=== PATIENT | female | born 1940 | race Caucasian/White ===

== ENCOUNTER 2018-09-21 16:32 | Inpatient (IN) | payer BC, MEDICARE ==
[~2018-09-21] VITALS: Ht 165.1 cm; Wt 74.9 kg
--- NOTE | 2018-09-21 16:56 | PHYS DOC ---
Past History Past Medical History: Anxiety, Dementia, Depression Adult General Chief Complaint Chief Complaint: PSYCH EVALUATION HPI HPI Patient is a 77 year old female who presents with psychosis. Patient started having mental health issues approximately 24 to 48 hours ago. Patient was evaluated at an outlying facility who believed that she had labs performed recently and felt that she was medically clear for our geriatric psychiatric unit however patient had no laboratory testing and no imaging performed. Patient is in the emergency department for these. Patient denies any suicidal or homicidal ideation. History from patient's and son dictates that she has a previous history of mental health issues has not been having any up until the time frame noted above with increased confusion, flight of ideas, and decreased sleeping.[] Review of Systems Review of Systems Constitutional: Denies fever or chills [] Eyes: Denies change in visual acuity, redness, or eye pain [] HENT: Denies nasal congestion or sore throat [] Respiratory: Denies cough or shortness of breath [] Cardiovascular: No chest pain or palpitations[] GI: Denies abdominal pain, nausea, vomiting, bloody stools or diarrhea [] : Denies dysuria or hematuria [] Musculoskeletal: Denies back pain or joint pain [] Integument: Denies rash or skin lesions [] Neurologic: Denies headache, focal weakness or sensory changes [] Endocrine: Denies polyuria or polydipsia [] All other systems were reviewed and found to be within normal limits, except as documented in this note. Physical Exam Physical Exam Constitutional: Well developed, well nourished, no acute distress, non-toxic appearance. [] HENT: Normocephalic, atraumatic, bilateral external ears normal, oropharynx moist, no oral exudates, nose normal. [] Eyes: PERRLA, EOMI, conjunctiva normal, no discharge. [] Neck: Normal range of motion, no tenderness, supple, no stridor. [] Cardiovascular:Heart rate regular rhythm, no murmur [] Lungs & Thorax: Bilateral breath sounds clear to auscultation [] Abdomen: Bowel sounds normal, soft, no tenderness, no masses, no pulsatile masses. [] Skin: Warm, dry, no erythema, no rash. [] Back: No tenderness, no CVA tenderness. [] Extremities: No tenderness, no cyanosis, no clubbing, ROM intact, no edema. [] Neurologic: Alert and oriented X 3, normal motor function, normal sensory function, no focal deficits noted. [] Psychologic: Affect normal, mood labile, from smiling to tearful in moments, tangential thinking. [] EKG EKG My interpretation of EKG shows a sinus rhythm at 74 bpm. No acute morphology. No findings of acute STEMI of contralateral changes.[] Radiology/Procedures Radiology/Procedures CT scan of the head showed no acute changes[] Course & Med Decision Making Course & Med Decision Making Pertinent Labs and Imaging studies reviewed. (See chart for details) ED course: Patient arrived, was placed in bed, in tolerate exam well. Patient was transported to and from [place] with any complications. At 1800 laboratory testing is still pending and patient care was endorsed to Dr. Curtis with an initial plan of admission to [facility] if these are all normal.[] Impression 1. Mental Status Change 2. Insomnia 3. Depression 4. Dementia 5. UTI 6. Anxiety Pt. Admitted [facility] - Dr. Montgomery. Consult to Dr. Bermudez - for medical issues. Dragon Disclaimer Dragon Disclaimer This electronic medical record was generated, in whole or in part, using a voice recognition dictation system. Departure Departure: Referrals: REYNA LOPEZ (PCP) OMAR DYE DO Sep 21, 2018 16:56 FLAVIO CURTIS MD Sep 21, 2018 20:54
[2018-09-21] MEDS ORDERED: LATA2.5D3 EACHEYE (17:24)
[2018-09-21] MEDS ORDERED: HYDR-3165 PO (17:24)
[2018-09-21] MEDS ORDERED: LORA1TAB PO (17:24)
--- NOTE | 2018-09-21 17:28 | RAD ---
PQRS Compliance statement: One or more of the following individualized dose reduction techniques were utilized for this examination: 1. Automated exposure control. 2. Adjustment of the mA and/or kV according to patient size. 3. Use of iterative reconstruction technique. Indication:ACUTE PSYCHOSIS TECHNIQUE: CT head without IV contrast COMPARISON:None FINDINGS: No pathologic extra-axial or intra-axial fluid collection. Mild diffuse cerebral atrophy with ex vacuo dilation of the ventricles. No acute intracranial bleed. Confluent periventricular and deep white matter low-attenuation is seen. No focal loss of masterson-white differentiation. Visualized orbits within normal limits. No suspicious bony lesion. Visualized paranasal sinuses and mastoid air cells are clear. IMPRESSION: 1. No acute intracranial bleed. If concern for acute ischemic stroke is high, please consider MRI brain. 2. Advanced white matter changes most likely secondary to chronic microvascular ischemic disease. Electronically signed by: Salo Jaime DO (09/21/2018 5:25 PM) [employer]
--- NOTE | 2018-09-21 17:44 | EKG ---
[address] [address] Test Date: 2018-09-21 Test Time: 17:21:10 Pat Name: NUNU AGOSTO Department: Room: Gender: F Cryptanalyst: : 1940 Requested By: OMAR DYE Order Number: [id number] Reading MD: Ramez Houston MD Measurements Intervals [place] Rate: 74 P: 41 [place]: 126 QRS: 62 QRSD: 78 T: 34 QT: 396 QTc: 445 Interpretive Statements SINUS RHYTHM Electronically Signed On 09-24-2018 8:40:59 PERMIT AGENT by Ramez Houston MD
[2018-09-21 17:58] LABS: BASO # 0.1 x10^3/uL (0.0-0.2); BASO % 1 % (0-3); EOS # 0.1 x10^3/uL (0.0-0.7); EOS % 2 % (0-3); HEMATOCRIT 46.8 % (36.0-47.0); HEMOGLOBIN 15.1 g/dL (12.0-15.5); LYMPH # 1.2 x10^3/uL (1.0-4.8); LYMPH % 21 % (24-48); MEAN CORPUSCULAR HEMOGLOBIN 32 pg (25-35); MEAN CORPUSCULAR HGB CONC 32 g/dL (31-37); MEAN CORPUSCULAR VOLUME 98 fL (79-100); MONO # 0.7 x10^3/uL (0.0-1.1); MONO % 12 % (0-9); NEUT # 3.8 x10^3uL (1.8-7.7); NEUT % 64 % (31-73); PLATELET COUNT 229 x10^3/uL (140-400); RED BLOOD COUNT 4.77 x10^6/uL (3.50-5.40); RED CELL DISTRIBUTION WIDTH 13.4 % (11.5-14.5); WHITE BLOOD COUNT 5.8 x10^3/uL (4.0-11.0)
[2018-09-21 18:11] LABS: ALBUMIN 3.8 g/dL (3.4-5.0); CALCIUM 9.1 mg/dL (8.5-10.1); CREATININE 0.8 mg/dL (0.6-1.0); DIRECT BILIRUBIN 0.2 mg/dL (0.0-0.2); GFR 69.9; MAGNESIUM 2.3 mg/dL (1.8-2.4); POTASSIUM 3.6 mmol/L (3.5-5.1); TOTAL BILIRUBIN 0.7 mg/dL (0.2-1.0); TOTAL PROTEIN 7.2 g/dL (6.4-8.2)
[2018-09-21 18:20] LABS: ETHANOL < 10 mg/dL (0-10); SALIC 0.8 mg/dL (2.8-20.0)
[2018-09-21 18:21] LABS: ACETAMIN < 2.0 mcg/mL (10-30)
[2018-09-21 22:10] VITALS: BP 138/77
[2018-09-21 22:31] LABS: BARBITURATES NEG (NEG); BENZODIAZEPINES NEG (NEG); BILIRUBIN,URINE NEG (NEG); CANNABINOIDS NEG (NEG); CLARITY,URINE HAZY; COCAINE NEG (NEG); COLOR,URINE YELLOW; GLUCOSE,URINE NEG (NEG); METHADONE NEG (NEG); OPIATES POS (NEG); PHENCYCLIDINE NEG (NEG)
[2018-09-21 22:32] LABS: BACTERIA,URINE MOD /HPF (0-FEW); NITRITE,URINE NEG (NEG); SQUAMOUS EPITHELIAL CELL,UR FEW /LPF; UROBILINOGEN,URINE 0.2 mg/dL (0.2 mg/dL)
[2018-09-21 22:37] LABS: AMPHETAMINE/METHAMPHETAMINE NEG (NEG)
[2018-09-21] MEDS ORDERED: MAG HYDROX/AL HYDROX/SIMETH 30 ML ORAL.SUSP PO PRN (23:00)
[2018-09-21] MEDS ORDERED: MAGNESIUM HYDROXIDE 2,400 MG/30 ML ORAL.SUSP. PO PRN (23:00)
[2018-09-21] MEDS: LORazepam 1 MG TABLET PO PRN (23:03)
[2018-09-21] MEDS ORDERED: HYDROcodone/APAP 5/325MG 1 TAB TABLET PO PRN (23:15)
[2018-09-22 05:59] VITALS: BP 163/78
[2018-09-22] MEDS: CEPHALEXIN 250 MG CAPSULE PO SCH ×3 (09:16→19:22)
[2018-09-22 15:08] LABS: THYROXINE 7.3 ug/dL (4.5-12.0)
[2018-09-22 16:16] VITALS: BP 143/84
--- NOTE | 2018-09-22 16:18 | CONS ---
DATE OF CONSULTATION: 09/21/2018 REASON FOR CONSULTATION: Medical management. HISTORY OF PRESENT ILLNESS: The patient is a 77-year-old female patient who lives at home with her , signed herself in on account of living in the past, talking about her father's as if it occurred yesterday, confused, sudden onset, decreased appetite, insomnia, increased agitation; stated that she has God talking to her through the TV and radio, all this in a background of psychosis, not otherwise specified and she is here for inpatient psychiatric stabilization. PAST MEDICAL HISTORY: Significant for anxiety, chronic back pain. She has also urinary tract infection, opioid use. PAST SURGICAL HISTORY: Significant for broken leg, appendectomy, cholecystectomy, biopsy of the breast, cervical laminectomy. FAMILY HISTORY: Positive for breast cancer in her mother and cancer in mother and father, heart disease in her mother and father. Her mother has also tuberculosis. SOCIAL HISTORY: She is and lives with her . She drinks alcohol, but quit smoking. ALLERGIES: She is ALLERGIC TO NONSTEROIDAL ANTI-INFLAMMATORY MEDICATION. CURRENT MEDICATIONS: She is currently on following medications: She is on hydrocodone/APAP 5/325 one tablet 3 times a day as needed, lorazepam 1 mg twice a day as needed, and latanoprost 1 drop to both eyes at bedtime for glaucoma. REVIEW OF SYSTEMS: As per history of present illness. PHYSICAL EXAMINATION GENERAL: When I examined her, she looked pale, but no jaundice or cyanosis. No lymphadenopathy, no thyromegaly. No jugular venous distension. No lower limb edema. VITAL SIGNS: Her heart rate was 82, blood pressure was 163/78, temperature was 98.1, respiratory rate 22 and oxygen saturation was 96%. HEAD, EYES, EARS, NOSE, AND THROAT: Showed normocephalic, atraumatic. NECK: Supple. CARDIAC: Normal first and second heart sounds. No gallop, rub or murmur. CHEST: Clear to auscultation. No crepitation or rhonchi. ABDOMEN: Scaphoid, soft, nontender. NEUROLOGIC: She is grossly intact. All her cranial nerves intact. EXTREMITIES: She moves extremities without difficulty. She ambulates without assistance or assistive devices. LABORATORY DATA: Showed a white cell count 5800, hemoglobin 15, hematocrit 46, MCV 98 and a platelet count 229,000. Her chemistry showed a serum sodium 134, potassium 3.6, chloride 100, bicarbonate 22, anion gap of 12, BUN 22, creatinine 0.8, estimated GFR was 70 mL per minute. Her glucose was 94, calcium was 9.1, magnesium was 2.3. Total bilirubin, AST, ALT, alkaline phosphatase were normal. Total protein was 7.2, albumin 3.8, lipase was 204. Her lactic acid was normal. Serum iron was 59, TIBC was 287 and iron saturation was 21%. Her ammonia was only 10. Her serum triglycerides were 77, total cholesterol 163, LDL cholesterol was 93, VLDL was 15, and HDL cholesterol was 55, the ratio was 2. Her TSH was 1.44. Her prothrombin time was 9.7, INR of 1. Urinalysis showed the urine yellow, hazy with a pH of 5.5, specific gravity of 1.030. The urine was negative for protein, glucose, ketones, blood, nitrite with moderate amount of leukocyte esterase, 1-2 rbc's, 11-20 wbc's, and moderate amount of bacteria. Her toxic screen was positive for opiates and was negative for barbiturates, phencyclidine, amphetamine, benzodiazepine, cocaine, cannabinoids and alcohol. She did have a CT scan of the head, which showed no pathological extraaxial or intraaxial fluid collection. Mild diffuse cerebral atrophy with ex vacuo dilatation of the ventricles. No acute intracranial bleed, confluent periventricular and deep white matter low attenuation is seen. No focal loss of masterson-white differentiation is visualized. The visualized orbits are within normal limits. No suspicious bony lesion. Visualized paranasal sinuses and mastoid air cells are all clear. IMPRESSION: In summary, this is a 77-year-old who was admitted on account of living in the past, talking about her father's as if it occurred yesterday, confused, all this with sudden onset with decreased appetite, insomnia, increased agitation. She thinks that God talks to her through the TV and radio, and was admitted with not otherwise specified psychosis. She is here for inpatient psychiatric stabilization. Her past medical history is mostly unremarkable. She has glaucoma and chronic low back pain. Medically, she seems to be all in all stable. I will obviously follow all the other lab works that are still pending at the time of this dictation and make any necessary recommendation. Thank you, Dr. Montgomery for allowing me to participate in the care of this patient. ANGELICA HOLLAND MD DR: MICHAEL/anahi JOB#: [id number] / [id number]
--- NOTE | 2018-09-22 19:06 | PSYEV ---
DATE OF SERVICE: 09/21/2018 HISTORY OF PRESENT ILLNESS: This 77-year-old female was admitted to inpatient program at [facility] from [facility] Room where she was evaluated. The patient's called earlier to talk to the staff requesting for admission. At that time, she also stated the patient was taking lorazepam and also Bigelow. There was some confusion whether she has been taking them regularly or if she is abusing down and the recommendation was for her to go to [facility] to be medically cleared. The patient was also seen here in the Emergency Room. The patient apparently is having a nervous breakdown according to her . Apparently, she had similar problems in 1985 and the patient is not sure whether she was hospitalized, but she said she was on thiothixene, the other name for drug is Navane, and also Pamelor and continue seeing the doctor regularly for about 2 years and symptoms all cleared up, then she stopped taking her medications. The patient currently is presenting with racing thoughts, ruminations, circumstantial thinking, increased psychomotor activity, emotional lability and also claims she is not able to hear ____. The patient also states she has been on board with all the noises including TV, people talking, seems to be hallucinating auditorily. The patient admits that she was taking Bigelow for several years, sometimes up to 6 a day lately, cutting down to once a day in the process of taking her off completely. Also, she has been on lorazepam up to 3 mg daily. Lately, she is taking only 1 mg daily. The patient denies of abusing any narcotics or lorazepam. The patient states she was told that she had the diagnosis of schizophrenia then, but she was able to function fairly well. She is retired. Since she retired, she also has been drinking 2-3 shots of hard liquor before that she was drinking beer. The patient is also not a good historian at this time because of her disorganized thinking, paranoia, sensitivity to noises. The patient does admit when she had a breakdown in 1985, she was having all these problems including hearing voices. She thought God was talking to her. The patient also thought people are controlling her mind. The patient is also not sleeping well. Appetite decreased. PAST PSYCHIATRIC HISTORY: As per the patient, she was treated in 1985. Not clear why she is hospitalized or not, but she was in treatment for over 2 years and according to her, she was given the diagnosis of schizophrenia and treated with Biotoxin and Pamelor. Currently, she is not taking them. PAST MEDICAL HISTORY: History of chronic back pain that is the reason she is taking the narcotic, also had a recent UTI and opioid abuse. PAST SURGICAL HISTORY: Significant for broken leg, appendectomy, cholecystectomy, biopsy of the breast, also surgical laminectomy. ALLERGIES: THE PATIENT IS ALLERGIC TO NONSTEROIDAL ANTI-INFLAMMATORY DRUGS. PSYCHOSOCIAL HISTORY: The patient is somnolent. The patient is having lot of difficulty providing a chronological history of the past events except stating she had problems dealing with her father's and also at times people talking and feeling expressing her emotions as though these event has happened recently. The patient also had problems with concept of time. The patient states she graduated from college in [employer] science. 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 The patient is for 50 years. She has a son. The patient currently retired. The patient denied of any abuse in the past physical, emotional or sexual abuse. MENTAL STATUS EXAMINATION: The patient appeared to be of her stated age, casually dressed, highly emotional and also labile. The patient is also complaining that she has hearing problems. The patient constantly is focusing in the past. He has a lot of problems with the thinking at this time. Her speech is clear. Increased rate and rhythm. No speech impediment. Affect and mood showed she is disorganized with her thinking. She is ruminating, also circumstantial thinking, going in details about everything. The patient also admits she is not sleeping well, not eating well. She is constantly bombarded with all the information, all the noises, TV and also she appears to be having auditory hallucinations, also command hallucinations of God is telling her to do things. The patient denied of any suicidal or homicidal thoughts. The patient denied of any suicidal attempts in the past. She is oriented to surroundings. Her memory is not testable at this time because of her psychosis. Her judgment is impaired. Insight is limited. The patient appears to be functioning on an average level of intelligence. Strength: Supportive . She is fairly good. She has a college degree, able to hold a responsible job in the past, currently retired. WEAKNESSES: The patient is currently in a psychotic state. The patient also is abusing alcohol, narcotics and also benzodiazepine. She has been taking for many years. DIAGNOSTIC IMPRESSION: AXIS I: 1. Bipolar disorder, manic episode. 2. Consider Schizoaffective disorder, bipolar type. AXIS II: None. AXIS III: Chronic back pain, spinal laminectomy. INITIAL TREATMENT PLAN: The patient had a surgical exam, also routine lab work including CBC, chem profile, and urinalysis. The patient's lab work was within normal range. The patient's thyroid profile was within the normal range. Ammonia level less than 10. BUN 22. CURRENT MEDICATIONS: the patient's current medications include prior to admission, Keflex 500 mg t.i.d., hydrocodone, currently on 1 t.i.d. p.r.n. for pain, lorazepam 1 mg b.i.d. p.r.n. for pain. The patient ____ 500 mg at night and also Abilify 10 mg daily. LENGTH OF STAY: 8-10 days. JAYJAY LOPEZ MD DR: NERY/anahi JOB#: [id number] / [id number]
[2018-09-22] MEDS: LATANOPROST 0.005% OPHTH SOLUTION 2.5ML BOTTLE. OU SCH (19:22)
[2018-09-22] MEDS: LORazepam 1 MG TABLET PO PRN (19:27)
[2018-09-22] MEDS ORDERED: NAPR220T70 PO (20:21)
[2018-09-22 23:07] LABS: HEMOGLOBIN A1C 5.4 % (4.8-5.6)
[2018-09-23 05:51] VITALS: BP 170/87
[2018-09-23] MEDS: CEPHALEXIN 250 MG CAPSULE PO SCH ×3 (08:07→19:49)
--- NOTE | 2018-09-23 14:20 | PN ---
DATE: 09/23/2018 SUBJECTIVE: The patient was seen today, met with the staff, chart reviewed. The patient's behavior has improved slightly. She is more pleasant, but still confused, flight of ideas, racing thoughts. The patient also on wheelchair. No falls. OBSERVATION: VITAL SIGNS: Temperature 98.1, blood pressure 170/87, pulse 86, respirations 20, O2 sat 98%. Slept about 5 hours last night. MEDICATIONS: Reviewed. The patient continues to show fluctuating symptoms, no major side effects. LABORATORY DATA: Reviewed. ASSESSMENT: 1. Bipolar disorder, manic episode. 2. Consider schizoaffective disorder, bipolar type. 3. Cognitive disorder, mild. PLAN: Continue with the current treatment. Continue to observe the patient review and patient is also exhibiting some cognitive deficits at this time. JAYJAY LOPEZ MD DR: NERY/anahi JOB#: [id number] / [id number]
[2018-09-23 16:30] VITALS: BP 152/87
[2018-09-23] MEDS: LATANOPROST 0.005% OPHTH SOLUTION 2.5ML BOTTLE. OU SCH (19:49)
[2018-09-23] MEDS: LACTOBACILLUS RHAMNOSUS GG 1 CAPSULE. PO SCH (19:49)
[2018-09-24] MEDS: LORazepam 1 MG TABLET PO PRN (01:06)
[2018-09-24] MEDS: NAPROXEN 250 MG TABLET PO PRN (05:26)
[2018-09-24 05:59] VITALS: BP 148/93
[2018-09-24] MEDS: LACTOBACILLUS RHAMNOSUS GG 1 CAPSULE. PO SCH ×2 (07:53→20:50)
[2018-09-24] MEDS: CEPHALEXIN 250 MG CAPSULE PO SCH ×3 (07:53→20:50)
[2018-09-24 16:09] VITALS: BP 141/93
--- NOTE | 2018-09-24 19:05 | PDOC ---
Exam Note: Severo Note: Please also refer to the separate dictated note~for this date of service dictated separately.~Patient seen individually. Discussed the patient with Nursing staff reviewed the chart.~Reviewed interim history and current functioning. Reviewed vital signs,~Labs/ Radiology~and current medications noted below. Continue current treatment with the changes noted in the dictated addendum note Assessment: Vital Signs: Vital Signs Date Time Temp Pulse Resp B/P (MAP) Pulse Ox O2 Delivery O2 Flow Rate FiO2 09/24/18 16:09 97.7 88 20 141/93 (109) 100 09/23/18 05:51 Room Air I&O Intake and Output 09/24/18 07:00 Intake Total 1040 ml Balance 1040 ml Intake Oral 1040 ml Current Medications: Meds: Current Medications Acetaminophen (Tylenol) 650 mg PRN Q6HRS PRN PO PAIN / TEMP; Start 09/21/18 at 23:00 Al Hydroxide/Mg Hydroxide (Mylanta Plus Xs) 15 ml PRN AFTMEALHC PRN PO DYSPEPSIA; Start 09/21/18 at 23:00 Magnesium Hydroxide (Milk Of Magnesia) 2,400 mg PRN QHS PRN PO CONSTIPATION; Start 09/21/18 at 23:00 Lorazepam (Ativan) 1 mg PRN BID PRN PO ANXIETY / AGITATION Last administered on 09/24/18at 01:06; Start 09/21/18 at 23:00 Acetaminophen/ Hydrocodone Bitart (Lortab 5/325) 1 tab PRN TID PRN PO PAIN; Start 09/21/18 at 23:15; Stop 09/22/18 at 20:23; Status DC Latanoprost (Xalatan) 1 drop QHS OU Last administered on 09/23/18at 19:49; Start 09/22/18 at 21:00 Cephalexin HCl (Keflex) 500 mg TID PO Last administered on 09/24/18at 13:56; Start 09/22/18 at 09:00 Naproxen (Naprosyn) 250 mg PRN Q12HR PRN PO INFLAMMATION PAIN Last administered on 09/24/18at 05:26; Start 09/22/18 at 20:30 Lactobacillus Rhamnosus (Culturelle) 1 cap BID PO Last administered on at 07:53; Start 09/23/18 at 21:00 Sertraline HCl (Zoloft) 50 mg DAILY PO ; Start 09/25/18 at 09:00; Status UNV Mirtazapine (Remeron) 7.5 mg QHS PO ; Start 09/24/18 at 21:00; Status UNV Active Scripts Active Reported Aleve (Naproxen Sodium) 220 Mg Tablet 220 Mg PO PRN Q12HR PRN Lorazepam 1 Mg Tablet 1 Mg PO PRN BID PRN Latanoprost 2.5 Ml Drops 1 Drop EACHEYE QHS I have reviewed the current psychotropics carefully including drug interactions. Risk benefit ratio favors no change other than as noted in my dictated progress note. DELANEY GARCIA MD Sep 24, 2018 19:05
[2018-09-24] MEDS: MIRTAZAPINE 7.5 MG TABLET. PO SCH (20:51)
[2018-09-24] MEDS: LATANOPROST 0.005% OPHTH SOLUTION 2.5ML BOTTLE. OU SCH (20:52)
[2018-09-25 05:54] VITALS: BP 135/88
[2018-09-25] MEDS: LACTOBACILLUS RHAMNOSUS GG 1 CAPSULE. PO SCH ×2 (08:32→20:13)
[2018-09-25] MEDS: CEPHALEXIN 250 MG CAPSULE PO SCH ×3 (08:32→20:13)
[2018-09-25] MEDS: SERTRALINE 50 MG TABLET. PO SCH (10:52)
[2018-09-25 15:47] VITALS: BP 151/74
[2018-09-25] MEDS ORDERED: traZODone 50 MG TABLET. PO PRN (18:15)
--- NOTE | 2018-09-25 19:04 | PDOC ---
Exam Note: Severo Note: Please also refer to the separate dictated note~for this date of service dictated separately.~Patient seen individually. Discussed the patient with Nursing staff reviewed the chart.~Reviewed interim history and current functioning. Reviewed vital signs,~Labs/ Radiology~and current medications noted below. Continue current treatment with the changes noted in the dictated addendum note Assessment: Vital Signs: Vital Signs Date Time Temp Pulse Resp B/P (MAP) Pulse Ox O2 Delivery O2 Flow Rate FiO2 09/25/18 15:47 98.3 92 19 151/74 (99) 97 Room Air I&O Intake and Output 09/25/18 07:00 Intake Total 600 ml Balance 600 ml Intake Oral 600 ml Current Medications: Meds: Current Medications Acetaminophen (Tylenol) 650 mg PRN Q6HRS PRN PO PAIN / TEMP; Start 09/21/18 at 23:00 Al Hydroxide/Mg Hydroxide (Mylanta Plus Xs) 15 ml PRN AFTMEALHC PRN PO DYSPEPSIA; Start 09/21/18 at 23:00 Magnesium Hydroxide (Milk Of Magnesia) 2,400 mg PRN QHS PRN PO CONSTIPATION; Start 09/21/18 at 23:00 Lorazepam (Ativan) 1 mg PRN BID PRN PO ANXIETY / AGITATION Last administered on 09/24/18at 01:06; Start 09/21/18 at 23:00 Acetaminophen/ Hydrocodone Bitart (Lortab 5/325) 1 tab PRN TID PRN PO PAIN; Start 09/21/18 at 23:15; Stop 09/22/18 at 20:23; Status DC Latanoprost (Xalatan) 1 drop QHS OU Last administered on 09/24/18at 20:52; Start 09/22/18 at 21:00 Cephalexin HCl (Keflex) 500 mg TID PO Last administered on 09/25/18at 14:00; Start 09/22/18 at 09:00 Naproxen (Naprosyn) 250 mg PRN Q12HR PRN PO INFLAMMATION PAIN Last administered on 09/24/18at 05:26; Start 09/22/18 at 20:30 Lactobacillus Rhamnosus (Culturelle) 1 cap BID PO Last administered on at 08:32; Start 09/23/18 at 21:00 Sertraline HCl (Zoloft) 50 mg DAILY PO Last administered on 09/25/18at 10:52; Start 09/25/18 at 09:00 Mirtazapine (Remeron) 7.5 mg QHS PO Last administered on 09/24/18at 20:51; Start 09/24/18 at 21:00 Trazodone HCl (Desyrel) 50 mg QHS PO ; Start 09/25/18 at 21:00 Trazodone HCl (Desyrel) 50 mg PRN QHS PRN PO INSOMNIA, MAY REPEAT X1; Start at 18:15 Active Scripts Active Reported Aleve (Naproxen Sodium) 220 Mg Tablet 220 Mg PO PRN Q12HR PRN Lorazepam 1 Mg Tablet 1 Mg PO PRN BID PRN Latanoprost 2.5 Ml Drops 1 Drop EACHEYE QHS I have reviewed the current psychotropics carefully including drug interactions. Risk benefit ratio favors no change other than as noted in my dictated progress note. Diagnosis: Problems: (1) Anxiety disorder (2) Dementia, vascular, with depression (3) Dementia, vascular, with delusions (4) Impulse control disorder (5) Urinary tract infection DELANEY GARCIA MD Sep 25, 2018 19:04
[2018-09-25] MEDS: MIRTAZAPINE 7.5 MG TABLET. PO SCH (20:13)
[2018-09-25] MEDS: LATANOPROST 0.005% OPHTH SOLUTION 2.5ML BOTTLE. OU SCH (20:15)
[2018-09-25] MEDS: traZODone 50 MG TABLET. PO SCH (20:23)
[2018-09-26 06:00] VITALS: BP 159/93
[2018-09-26] MEDS: SERTRALINE 50 MG TABLET. PO SCH (08:59)
[2018-09-26] MEDS: LACTOBACILLUS RHAMNOSUS GG 1 CAPSULE. PO SCH ×2 (08:59→19:56)
[2018-09-26] MEDS: CEPHALEXIN 250 MG CAPSULE PO SCH ×3 (09:00→19:56)
--- NOTE | 2018-09-26 09:17 | PN ---
DATE: 09/24/2018 PSYCHIATRIC PROGRESS NOTE This is a late entry 09/24/2018 covers elements not covered in my initial note. SUBJECTIVE: I met with the patient in the evening. The patient slept 3-1/2 hours previous night. She has been tearful, depressed, intermittently agitated. Discussed the patient with Dr. Sam, who covered for me over the past 1 week and reviewed her past psychiatric records extensively. The patient remains depressed, anxious, somewhat forgetful. REVIEW OF SYSTEMS: Ambulation impaired with walker. No CV, , pulmonary, eye, ENT system symptoms on review. MENTAL STATUS EXAM: Oriented to herself and situation. Speech has some latency, coherent. Abstraction fair, computation impaired, language function intact, attention span short. Mood and affect somewhat withdrawn. LABORATORY DATA: Reviewed. IMPRESSION: Major neurocognitive disorder, early Alzheimer, vascular with delusion, depression. Major depressive disorder; anxiety disorder, unspecified; psychotic disorder, unspecified. PLAN: We will start Remeron 7.5 mg p.o. at bedtime to help with her insomnia, Zoloft 50 mg a day. She remains on Ativan 1 mg b.i.d. p.r.n. Treat the UTI and may need to add trazodone as well. DELANEY GARCIA MD DR: GUSTAVO/anahi JOB#: [id number] / [id number]
[2018-09-26] MEDS: LORazepam 1 MG TABLET PO PRN (11:42)
[2018-09-26 16:39] VITALS: BP 131/71
[2018-09-26] MEDS: QUEtiapine 50 MG TABLET. PO SCH (16:49)
[2018-09-26] MEDS: MIRTAZAPINE 7.5 MG TABLET. PO SCH (19:56)
[2018-09-26] MEDS: traZODone 50 MG TABLET. PO SCH (19:56)
[2018-09-26] MEDS: LATANOPROST 0.005% OPHTH SOLUTION 2.5ML BOTTLE. OU SCH (19:56)
--- NOTE | 2018-09-26 22:58 | PDOC ---
Exam Note: Severo Note: Please also refer to the separate dictated note~for this date of service dictated separately.~Patient seen individually. Discussed the patient with Nursing staff reviewed the chart.~Reviewed interim history and current functioning. Reviewed vital signs,~Labs/ Radiology~and current medications noted below. Continue current treatment with the changes noted in the dictated addendum note Assessment: Vital Signs: Vital Signs Date Time Temp Pulse Resp B/P (MAP) Pulse Ox O2 Delivery O2 Flow Rate FiO2 09/26/18 16:39 98.0 95 20 131/71 (91) 97 09/25/18 15:47 Room Air I&O Intake and Output 09/26/18 07:00 Intake Total 1080 ml Balance 1080 ml Intake Oral 1080 ml Current Medications: Meds: Current Medications Acetaminophen (Tylenol) 650 mg PRN Q6HRS PRN PO PAIN / TEMP; Start 09/21/18 at 23:00 Al Hydroxide/Mg Hydroxide (Mylanta Plus Xs) 15 ml PRN AFTMEALHC PRN PO DYSPEPSIA; Start 09/21/18 at 23:00 Magnesium Hydroxide (Milk Of Magnesia) 2,400 mg PRN QHS PRN PO CONSTIPATION; Start 09/21/18 at 23:00 Lorazepam (Ativan) 1 mg PRN BID PRN PO ANXIETY / AGITATION Last administered on 09/26/18at 11:42; Start 09/21/18 at 23:00 Acetaminophen/ Hydrocodone Bitart (Lortab 5/325) 1 tab PRN TID PRN PO PAIN; Start 09/21/18 at 23:15; Stop 09/22/18 at 20:23; Status DC Latanoprost (Xalatan) 1 drop QHS OU Last administered on 09/26/18at 19:56; Start 09/22/18 at 21:00 Cephalexin HCl (Keflex) 500 mg TID PO Last administered on 09/26/18at 19:56; Start 09/22/18 at 09:00 Naproxen (Naprosyn) 250 mg PRN Q12HR PRN PO INFLAMMATION PAIN Last administered on 09/24/18at 05:26; Start 09/22/18 at 20:30 Lactobacillus Rhamnosus (Culturelle) 1 cap BID PO Last administered on at 19:56; Start 09/23/18 at 21:00 Sertraline HCl (Zoloft) 50 mg DAILY PO Last administered on 09/26/18at 08:59; Start 09/25/18 at 09:00 Mirtazapine (Remeron) 7.5 mg QHS PO Last administered on 09/26/18at 19:56; Start 09/24/18 at 21:00 Trazodone HCl (Desyrel) 50 mg QHS PO Last administered on 09/26/18at 19:56; Start 09/25/18 at 21:00 Trazodone HCl (Desyrel) 50 mg PRN QHS PRN PO INSOMNIA, MAY REPEAT X1; Start at 18:15 Quetiapine Fumarate (SEROquel) 50 mg DAILY@1700 PO Last administered on at 16:49; Start 09/26/18 at 17:00 Active Scripts Active Reported Aleve (Naproxen Sodium) 220 Mg Tablet 220 Mg PO PRN Q12HR PRN Lorazepam 1 Mg Tablet 1 Mg PO PRN BID PRN Latanoprost 2.5 Ml Drops 1 Drop EACHEYE QHS I have reviewed the current psychotropics carefully including drug interactions. Risk benefit ratio favors no change other than as noted in my dictated progress note. Diagnosis: Problems: (1) Anxiety disorder (2) Dementia, vascular, with depression (3) Dementia, vascular, with delusions (4) Impulse control disorder (5) Urinary tract infection DELANEY GARCIA MD Sep 26, 2018 22:58
--- NOTE | 2018-09-27 00:23 | PN ---
DATE: 09/25/2018 PSYCHIATRIC PROGRESS NOTE This late entry 09/25/2018 covers elements not covered in my initial note. SUBJECTIVE: I met with the patient in the evening. I met with her in her room at some length. The patient slept just one hour previous night. She remains somewhat manic, hyperverbal, distractible, refused Zoloft initially after reading the label, but took it later when the encouraged her to do so. She remains on Keflex t.i.d. for UTI. CT head shows atrophy. REVIEW OF SYSTEMS: No CV, , pulmonary, eye, ENT system symptoms on review. MENTAL STATUS EXAM: Oriented to herself and situation. Speech is coherent, rapid. Abstraction fair, computation impaired, language function intact, attention span short. Mood and affect remains somewhat manic. LABORATORY DATA: Reviewed. IMPRESSION: Probable bipolar 1 disorder, mixed with psychotic features; anxiety disorder, unspecified; cognitive disorder, unspecified. PLAN: We will meet with the patient's on 09/26/2018 to gather further history, but for now we will add trazodone 50 mg at bedtime for insomnia, may repeat x 1. Continue rest of the psychotropics unchanged including Ativan p.r.n., Remeron 7.5 mg at bedtime, Zoloft 50 mg a day. If symptoms of bipolar disorder are confirmed on historical information from the , we will add mood stabilizer, perhaps an atypical antipsychotic followed, consideration for Depakote. MAN Manuel GARCIA MD DR: GUSTAVO/anahi JOB#: [id number] / [id number]
[2018-09-27 05:38] VITALS: BP 179/98
[2018-09-27] MEDS: SERTRALINE 50 MG TABLET. PO SCH (08:50)
[2018-09-27] MEDS: LACTOBACILLUS RHAMNOSUS GG 1 CAPSULE. PO SCH ×3 (08:50→21:00)
[2018-09-27] MEDS: CEPHALEXIN 250 MG CAPSULE PO SCH ×4 (08:50→21:00)
[2018-09-27 11:45] VITALS: BP 163/94
[2018-09-27] MEDS: NAPROXEN 250 MG TABLET PO PRN (14:04)
[2018-09-27 15:54] VITALS: BP 151/79
[2018-09-27] MEDS: QUEtiapine 50 MG TABLET. PO SCH (17:28)
[2018-09-27] MEDS: ACETAMINOPHEN 325 MG TABLET PO PRN (18:43)
[2018-09-27] MEDS: LORazepam 1 MG TABLET PO PRN (18:43)
[2018-09-27] MEDS: MIRTAZAPINE 7.5 MG TABLET. PO SCH ×3 (19:36→23:32)
[2018-09-27] MEDS: traZODone 50 MG TABLET. PO SCH ×3 (19:36→23:32)
[2018-09-27] MEDS: LATANOPROST 0.005% OPHTH SOLUTION 2.5ML BOTTLE. OU SCH ×2 (19:38→21:00)
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
--- NOTE | 2018-09-27 22:48 | PDOC ---
Exam Note: Severo Note: Please also refer to the separate dictated note~for this date of service dictated separately.~Patient seen individually. Discussed the patient with Nursing staff reviewed the chart.~Reviewed interim history and current functioning. Reviewed vital signs,~Labs/ Radiology~and current medications noted below. Continue current treatment with the changes noted in the dictated addendum note Assessment: Vital Signs: Vital Signs Date Time Temp Pulse Resp B/P (MAP) Pulse Ox O2 Delivery O2 Flow Rate FiO2 09/27/18 15:54 98.2 89 19 151/79 (103) 96 Room Air I&O Intake and Output 09/27/18 07:00 Intake Total 240 ml Balance 240 ml Intake Oral 240 ml # Bowel Movements 1 Current Medications: Meds: Current Medications Acetaminophen (Tylenol) 650 mg PRN Q6HRS PRN PO PAIN / TEMP Last administered on 09/27/18at 18:43; Start 09/21/18 at 23:00 Al Hydroxide/Mg Hydroxide (Mylanta Plus Xs) 15 ml PRN AFTMEALHC PRN PO DYSPEPSIA; Start 09/21/18 at 23:00 Magnesium Hydroxide (Milk Of Magnesia) 2,400 mg PRN QHS PRN PO CONSTIPATION; Start 09/21/18 at 23:00 Lorazepam (Ativan) 1 mg PRN BID PRN PO ANXIETY / AGITATION Last administered on 09/27/18at 18:43; Start 09/21/18 at 23:00 Acetaminophen/ Hydrocodone Bitart (Lortab 5/325) 1 tab PRN TID PRN PO PAIN; Start 09/21/18 at 23:15; Stop 09/22/18 at 20:23; Status DC Latanoprost (Xalatan) 1 drop QHS OU Last administered on 09/27/18at 19:38; Start 09/22/18 at 21:00 Cephalexin HCl (Keflex) 500 mg TID PO Last administered on 09/27/18 19:36; Start 09/22/18 at 09:00 Naproxen (Naprosyn) 250 mg PRN Q12HR PRN PO INFLAMMATION PAIN Last administered on 09/27/18 14:04; Start 09/22/18 at 20:30 Lactobacillus Rhamnosus (Culturelle) 1 cap BID PO Last administered on 19:36; Start 09/23/18 at 21:00 Sertraline HCl (Zoloft) 50 mg DAILY PO Last administered on 09/27/18at 08:50; Start 09/25/18 at 09:00; Stop 09/27/18 at 16:51; Status DC Mirtazapine (Remeron) 7.5 mg QHS PO Last administered on 09/27/18at 19:36; Start 09/24/18 at 21:00 Trazodone HCl (Desyrel) 50 mg QHS PO Last administered on 09/27/18at 19:36; Start 09/25/18 at 21:00 Trazodone HCl (Desyrel) 50 mg PRN QHS PRN PO INSOMNIA, MAY REPEAT X1; Start at 18:15 Quetiapine Fumarate (SEROquel) 50 mg DAILY@1700 PO Last administered on at 17:28; Start 09/26/18 at 17:00 Amlodipine Besylate (Norvasc) 10 mg DAILY PO ; Start 09/28/18 at 09:00 Active Scripts Active Reported Aleve (Naproxen Sodium) 220 Mg Tablet 220 Mg PO PRN Q12HR PRN Lorazepam 1 Mg Tablet 1 Mg PO PRN BID PRN Latanoprost 2.5 Ml Drops 1 Drop EACHEYE QHS I have reviewed the current psychotropics carefully including drug interactions. Risk benefit ratio favors no change other than as noted in my dictated progress note. Diagnosis: Problems: (1) Anxiety disorder (2) Dementia, vascular, with depression (3) Dementia, vascular, with delusions (4) Impulse control disorder (5) Urinary tract infection DELANEY GARCIA MD Sep 27, 2018 22:48
[2018-09-28 06:29] VITALS: BP 188/88
[2018-09-28] MEDS: LACTOBACILLUS RHAMNOSUS GG 1 CAPSULE. PO SCH ×2 (07:52→18:27)
[2018-09-28] MEDS: CEPHALEXIN 250 MG CAPSULE PO SCH ×2 (07:52→12:10)
[2018-09-28] MEDS: amLODIPine BESYLATE 10 MG TABLET PO SCH (07:53)
[2018-09-28 09:40] LABS: BASO # 0.1 x10^3/uL (0.0-0.2); BASO % 1 % (0-3); EOS # 0.1 x10^3/uL (0.0-0.7); EOS % 2 % (0-3); HEMATOCRIT 44.5 % (36.0-47.0); HEMOGLOBIN 14.9 g/dL (12.0-15.5); LYMPH # 1.4 x10^3/uL (1.0-4.8); LYMPH % 24 % (24-48); MEAN CORPUSCULAR HEMOGLOBIN 32 pg (25-35); MEAN CORPUSCULAR HGB CONC 34 g/dL (31-37); MEAN CORPUSCULAR VOLUME 96 fL (79-100); MONO # 0.5 x10^3/uL (0.0-1.1); MONO % 9 % (0-9); NEUT # 3.8 x10^3uL (1.8-7.7); NEUT % 65 % (31-73); PLATELET COUNT 243 x10^3/uL (140-400); RED BLOOD COUNT 4.63 x10^6/uL (3.50-5.40); RED CELL DISTRIBUTION WIDTH 12.6 % (11.5-14.5); WHITE BLOOD COUNT 5.9 x10^3/uL (4.0-11.0)
[2018-09-28 10:00] LABS: ALBUMIN 3.5 g/dL (3.4-5.0); ALBUMIN/GLOBULIN RATIO 1.1 (1.0-1.7); CALCIUM 8.4 mg/dL (8.5-10.1); CREATININE 0.9 mg/dL (0.6-1.0); POTASSIUM 3.6 mmol/L (3.5-5.1); TOTAL BILIRUBIN 1.2 mg/dL (0.2-1.0); TOTAL PROTEIN 6.7 g/dL (6.4-8.2)
[2018-09-28] MEDS: QUEtiapine 50 MG TABLET. PO SCH (15:15)
[2018-09-28 16:03] VITALS: BP 143/85
[2018-09-28] MEDS: traZODone 50 MG TABLET. PO SCH (18:26)
[2018-09-28] MEDS: MIRTAZAPINE 7.5 MG TABLET. PO SCH (18:27)
[2018-09-28] MEDS: LATANOPROST 0.005% OPHTH SOLUTION 2.5ML BOTTLE. OU SCH (18:28)
[2018-09-28] MEDS ORDERED: THIOTHIXENE 1 MG PO SCH (21:00)
--- NOTE | 2018-09-28 22:40 | PDOC ---
Exam Note: Severo Note: Please also refer to the separate dictated note~for this date of service dictated separately.~Patient seen individually. Discussed the patient with Nursing staff reviewed the chart.~Reviewed interim history and current functioning. Reviewed vital signs,~Labs/ Radiology~and current medications noted below. Continue current treatment with the changes noted in the dictated addendum note Assessment: Vital Signs: Vital Signs Date Time Temp Pulse Resp B/P (MAP) Pulse Ox O2 Delivery O2 Flow Rate FiO2 09/28/18 16:03 98.1 98 20 143/85 (104) 98 Room Air I&O Intake and Output 09/28/18 07:00 Intake Total 720 ml Balance 720 ml Intake Oral 720 ml Labs: Laboratory Tests Test 09/28/18 09:25 White Blood Count 5.9 x10^3/uL (4.0-11.0) Red Blood Count 4.63 x10^6/uL (3.50-5.40) Hemoglobin 14.9 g/dL (12.0-15.5) Hematocrit 44.5 % (36.0-47.0) Mean Corpuscular Volume 96 fL (79-100) Mean Corpuscular Hemoglobin 32 pg (25-35) Mean Corpuscular Hemoglobin Concent 34 g/dL (31-37) Red Cell Distribution Width 12.6 % (11.5-14.5) Platelet Count 243 x10^3/uL (140-400) Neutrophils (%) (Auto) 65 % (31-73) Lymphocytes (%) (Auto) 24 % (24-48) Monocytes (%) (Auto) 9 % (0-9) Eosinophils (%) (Auto) 2 % (0-3) Basophils (%) (Auto) 1 % (0-3) Neutrophils # (Auto) 3.8 x10^3uL (1.8-7.7) Lymphocytes # (Auto) 1.4 x10^3/uL (1.0-4.8) Monocytes # (Auto) 0.5 x10^3/uL (0.0-1.1) Eosinophils # (Auto) 0.1 x10^3/uL (0.0-0.7) Basophils # (Auto) 0.1 x10^3/uL (0.0-0.2) Sodium Level 137 mmol/L (136-145) Potassium Level 3.6 mmol/L (3.5-5.1) Chloride Level 103 mmol/L (98-107) Carbon Dioxide Level 24 mmol/L (21-32) Anion Gap 10 (6-14) Blood Urea Nitrogen 13 mg/dL (7-20) Creatinine 0.9 mg/dL (0.6-1.0) Estimated GFR (Cockcroft-Gault) 61.0 BUN/Creatinine Ratio 14 (6-20) Glucose Level 113 mg/dL (70-99) H Calcium Level 8.4 mg/dL (8.5-10.1) L Magnesium Level 2.0 mg/dL (1.8-2.4) Total Bilirubin 1.2 mg/dL (0.2-1.0) H Aspartate Amino Transferase (AST) 18 U/L (15-37) Alanine Aminotransferase (ALT) 18 U/L (14-59) Alkaline Phosphatase 55 U/L (46-116) Total Protein 6.7 g/dL (6.4-8.2) Albumin 3.5 g/dL (3.4-5.0) Albumin/Globulin Ratio 1.1 (1.0-1.7) Current Medications: Meds: Current Medications Acetaminophen (Tylenol) 650 mg PRN Q6HRS PRN PO PAIN / TEMP Last administered on 09/27/18at 18:43; Start 09/21/18 at 23:00 Al Hydroxide/Mg Hydroxide (Mylanta Plus Xs) 15 ml PRN AFTMEALHC PRN PO DYSPEPSIA; Start 09/21/18 at 23:00 Magnesium Hydroxide (Milk Of Magnesia) 2,400 mg PRN QHS PRN PO CONSTIPATION; Start 09/21/18 at 23:00 Lorazepam (Ativan) 1 mg PRN BID PRN PO ANXIETY / AGITATION Last administered on 09/27/18at 18:43; Start 09/21/18 at 23:00 Acetaminophen/ Hydrocodone Bitart (Lortab 5/325) 1 tab PRN TID PRN PO PAIN; Start 09/21/18 at 23:15; Stop 09/22/18 at 20:23; Status DC Latanoprost (Xalatan) 1 drop QHS OU Last administered on 09/28/18at 18:28; Start 09/22/18 at 21:00 Cephalexin HCl (Keflex) 500 mg TID PO Last administered on 09/28/18at 12:10; Start 09/22/18 at 09:00; Stop 09/28/18 at 14:53; Status DC Naproxen (Naprosyn) 250 mg PRN Q12HR PRN PO INFLAMMATION PAIN Last administered on 09/27/18at 14:04; Start 09/22/18 at 20:30 Lactobacillus Rhamnosus (Culturelle) 1 cap BID PO Last administered on at 18:27; Start 09/23/18 at 21:00 Sertraline HCl (Zoloft) 50 mg DAILY PO Last administered on 09/27/18at 08:50; Start 09/25/18 at 09:00; Stop 09/27/18 at 16:51; Status DC Mirtazapine (Remeron) 7.5 mg QHS PO Last administered on 09/28/18at 18:27; Start 09/24/18 at 21:00 Trazodone HCl (Desyrel) 50 mg QHS PO Last administered on 09/28/18at 18:26; Start 09/25/18 at 21:00 Trazodone HCl (Desyrel) 50 mg PRN QHS PRN PO INSOMNIA, MAY REPEAT X1; Start at 18:15 Quetiapine Fumarate (SEROquel) 50 mg DAILY@1700 PO Last administered on at 17:28; Start 09/26/18 at 17:00; Stop 09/28/18 at 16:46; Status DC Amlodipine Besylate (Norvasc) 10 mg DAILY PO Last administered on 09/28/18at 07 :53; Start 09/28/18 at 09:00 Thiothixene (Navane) 1 mg HS PO Last administered on 09/28/18at 19:46; Start 09/28/18 at 21:00 Active Scripts Active Reported Aleve (Naproxen Sodium) 220 Mg Tablet 220 Mg PO PRN Q12HR PRN Lorazepam 1 Mg Tablet 1 Mg PO PRN BID PRN Latanoprost 2.5 Ml Drops 1 Drop EACHEYE QHS I have reviewed the current psychotropics carefully including drug interactions. Risk benefit ratio favors no change other than as noted in my dictated progress note. Diagnosis: Problems: (1) Anxiety disorder (2) Dementia, vascular, with depression (3) Dementia, vascular, with delusions (4) Impulse control disorder (5) Urinary tract infection DELANEY GARCIA MD Sep 28, 2018 22:40
--- NOTE | 2018-09-29 00:05 | PN ---
DATE: 09/28/2018 PSYCHIATRIC PROGRESS NOTE This late entry 09/27/2018 covers elements not covered in my initial note. SUBJECTIVE: I met with the patient in the evening in her room. The patient slept 5-1/4 hours previous evening. She remains somewhat delusional, perseverative, obsessive, anxious with some pressure of speech, making vague and unrelated comments to nursing staff as they were charting on the computer. She continues to have mood lability, slept 5-1/4 hours previous evening, received Naprosyn for back pain, refused the repeat trazodone previous night. REVIEW OF SYSTEMS: Ambulation impaired with some unsteadiness of gait with walker. No CV, , pulmonary, eye, ENT system symptoms on review. MENTAL STATUS EXAM: Oriented to herself and situation. Speech is coherent, still somewhat pressured. Abstraction fair, computation impaired, language function intact. Mood and affect remain somewhat hypomanic. LABORATORY DATA: Reviewed. IMPRESSION: Bipolar 1 disorder, manic with psychotic features; anxiety disorder, unspecified; cognitive disorder, unspecified. PLAN: Stop Zoloft 50 mg a day since it could be worsening some of her manic symptoms. Continue rest psychotropics unchanged. We have started Seroquel 50 mg at bedtime, may need to add a mood stabilizer. Maintain Remeron 7.5 at bedtime, Ativan p.r.n. MAN Manuel GARCIA MD DR: GUSTAVO/anahi JOB#: [id number] / [id number]
[2018-09-29] MEDS: LACTOBACILLUS RHAMNOSUS GG 1 CAPSULE. PO SCH ×2 (08:53→23:12)
[2018-09-29] MEDS: LORazepam 1 MG TABLET PO PRN (08:53)
[2018-09-29] MEDS: amLODIPine BESYLATE 10 MG TABLET PO SCH (08:54)
[2018-09-29 10:03] VITALS: BP 141/77
[2018-09-29 15:59] VITALS: BP 153/84
[2018-09-29] MEDS: LATANOPROST 0.005% OPHTH SOLUTION 2.5ML BOTTLE. OU SCH (21:00)
--- NOTE | 2018-09-29 21:48 | PDOC ---
Exam Note: Severo Note: Please also refer to the separate dictated note~for this date of service dictated separately.~Patient seen individually. Discussed the patient with Nursing staff reviewed the chart.~Reviewed interim history and current functioning. Reviewed vital signs,~Labs/ Radiology~and current medications noted below. Continue current treatment with the changes noted in the dictated addendum note Assessment: Vital Signs: Vital Signs Date Time Temp Pulse Resp B/P (MAP) Pulse Ox O2 Delivery O2 Flow Rate FiO2 09/29/18 15:59 97.2 96 22 153/84 (107) 96 Room Air I&O Intake and Output 09/29/18 07:00 Intake Total 960 ml Balance 960 ml Intake Oral 960 ml Current Medications: Meds: Current Medications Acetaminophen (Tylenol) 650 mg PRN Q6HRS PRN PO PAIN / TEMP Last administered on 09/27/18at 18:43; Start 09/21/18 at 23:00 Al Hydroxide/Mg Hydroxide (Mylanta Plus Xs) 15 ml PRN AFTMEALHC PRN PO DYSPEPSIA; Start 09/21/18 at 23:00 Magnesium Hydroxide (Milk Of Magnesia) 2,400 mg PRN QHS PRN PO CONSTIPATION; Start 09/21/18 at 23:00 Lorazepam (Ativan) 1 mg PRN BID PRN PO ANXIETY / AGITATION Last administered on 09/29/18at 08:53; Start 09/21/18 at 23:00 Acetaminophen/ Hydrocodone Bitart (Lortab 5/325) 1 tab PRN TID PRN PO PAIN; Start 09/21/18 at 23:15; Stop 09/22/18 at 20:23; Status DC Latanoprost (Xalatan) 1 drop QHS OU Last administered on 09/28/18at 18:28; Start 09/22/18 at 21:00 Cephalexin HCl (Keflex) 500 mg TID PO Last administered on 09/28/18at 12:10; Start 09/22/18 at 09:00; Stop 09/28/18 at 14:53; Status DC Naproxen (Naprosyn) 250 mg PRN Q12HR PRN PO INFLAMMATION PAIN Last administered on 09/27/18at 14:04; Start 09/22/18 at 20:30 Lactobacillus Rhamnosus (Culturelle) 1 cap BID PO Last administered on at 08:53; Start 09/23/18 at 21:00 Sertraline HCl (Zoloft) 50 mg DAILY PO Last administered on 09/27/18at 08:50; Start 09/25/18 at 09:00; Stop 09/27/18 at 16:51; Status DC Mirtazapine (Remeron) 7.5 mg QHS PO Last administered on 09/28/18at 18:27; Start 09/24/18 at 21:00 Trazodone HCl (Desyrel) 50 mg QHS PO Last administered on 09/28/18at 18:26; Start 09/25/18 at 21:00; Stop 09/29/18 at 18:41; Status DC Trazodone HCl (Desyrel) 50 mg PRN QHS PRN PO INSOMNIA, MAY REPEAT X1; Start at 18:15; Stop 09/29/18 at 18:41; Status DC Quetiapine Fumarate (SEROquel) 50 mg DAILY@1700 PO Last administered on at 17:28; Start 09/26/18 at 17:00; Stop 09/28/18 at 16:46; Status DC Amlodipine Besylate (Norvasc) 10 mg DAILY PO Last administered on 09/29/18at 08: 54; Start 09/28/18 at 09:00 Thiothixene (Navane) 1 mg HS PO Last administered on 09/28/18at 19:46; Start 09/28/18 at 21:00; Stop 09/29/18 at 18:25; Status DC Thiothixene (Navane) 2 mg HS PO ; Start 09/29/18 at 21:00 Trazodone HCl (Desyrel) 100 mg PRN QHS PRN PO INSOMNIA, MAY REPEAT X1; Start 09/29/18 at 18:45 Trazodone HCl (Desyrel) 100 mg QHS PO ; Start 09/29/18 at 21:00 Active Scripts Active Reported Aleve (Naproxen Sodium) 220 Mg Tablet 220 Mg PO PRN Q12HR PRN Lorazepam 1 Mg Tablet 1 Mg PO PRN BID PRN Latanoprost 2.5 Ml Drops 1 Drop EACHEYE QHS I have reviewed the current psychotropics carefully including drug interactions. Risk benefit ratio favors no change other than as noted in my dictated progress note. Diagnosis: Problems: (1) Anxiety disorder (2) Dementia, vascular, with depression (3) Dementia, vascular, with delusions (4) Impulse control disorder (5) Urinary tract infection DELANEY GARCIA MD Sep 29, 2018 21:48
[2018-09-29] MEDS: MIRTAZAPINE 7.5 MG TABLET. PO SCH (23:12)
[2018-09-29] MEDS: traZODone 50 MG TABLET. PO SCH (23:14)
[2018-09-29] MEDS: THIOTHIXENE 1 MG PO SCH (23:16)
[2018-09-30 05:56] VITALS: BP 153/80
[2018-09-30] MEDS: LACTOBACILLUS RHAMNOSUS GG 1 CAPSULE. PO SCH ×2 (08:00→19:51)
[2018-09-30] MEDS: amLODIPine BESYLATE 10 MG TABLET PO SCH (08:01)
[2018-09-30 15:51] VITALS: BP 156/72
[2018-09-30] MEDS: MIRTAZAPINE 7.5 MG TABLET. PO SCH (19:51)
[2018-09-30] MEDS: traZODone 50 MG TABLET. PO SCH (19:52)
[2018-09-30] MEDS: THIOTHIXENE 1 MG PO SCH (19:53)
[2018-09-30] MEDS: LATANOPROST 0.005% OPHTH SOLUTION 2.5ML BOTTLE. OU SCH (20:06)
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
[2018-10-01] MEDS: LORazepam 1 MG TABLET PO PRN (03:54)
[2018-10-01 05:56] VITALS: BP 126/72
[2018-10-01] MEDS: LACTOBACILLUS RHAMNOSUS GG 1 CAPSULE. PO SCH ×2 (08:10→20:13)
[2018-10-01] MEDS: amLODIPine BESYLATE 10 MG TABLET PO SCH (08:11)
--- NOTE | 2018-10-01 10:12 | PDOC ---
Exam Note: Severo Note: Late entry for DOS 09/30/2018. Please also refer to the separate dictated note~ for this date of service dictated separately.~Patient seen individually. Discussed the patient with Nursing staff reviewed the chart.~Reviewed interim history and current functioning. Reviewed vital signs,~Labs/ Radiology~and current medications noted below. Continue current treatment with the changes noted in the dictated addendum note Assessment: Vital Signs: VS - Last 72 Hours, by Label Date Time Temp Pulse Resp B/P (MAP) Pulse Ox O2 Delivery O2 Flow Rate FiO2 10/01/18 08:11 80 126/72 10/01/18 05:56 97.2 80 18 126/72 (90) 93 09/30/18 15:51 97.4 94 19 156/72 (100) 96 09/30/18 08:01 96 153/80 09/30/18 05:56 97.1 96 20 153/80 (104) 95 09/29/18 15:59 97.2 96 22 153/84 (107) 96 Room Air 09/29/18 10:03 97.9 103 18 141/77 (98) 95 Room Air 09/29/18 08:54 103 141/77 09/28/18 16:03 98.1 98 20 143/85 (104) 98 Room Air Vital Signs Date Time Temp Pulse Resp B/P (MAP) Pulse Ox O2 Delivery O2 Flow Rate FiO2 10/01/18 08:11 80 126/72 10/01/18 05:56 97.2 18 93 09/29/18 15:59 Room Air I&O Intake and Output 10/01/18 07:00 Intake Total 960 ml Balance 960 ml Intake Oral 960 ml Current Medications: Meds: Current Medications Acetaminophen (Tylenol) 650 mg PRN Q6HRS PRN PO PAIN / TEMP Last administered on 09/27/18at 18:43; Start 09/21/18 at 23:00 Al Hydroxide/Mg Hydroxide (Mylanta Plus Xs) 15 ml PRN AFTMEALHC PRN PO DYSPEPSIA; Start 09/21/18 at 23:00 Magnesium Hydroxide (Milk Of Magnesia) 2,400 mg PRN QHS PRN PO CONSTIPATION; Start 09/21/18 at 23:00 Lorazepam (Ativan) 1 mg PRN BID PRN PO ANXIETY / AGITATION Last administered on 10/01/18at 03:54; Start 09/21/18 at 23:00 Acetaminophen/ Hydrocodone Bitart (Lortab 5/325) 1 tab PRN TID PRN PO PAIN; Start 09/21/18 at 23:15; Stop 09/22/18 at 20:23; Status DC Latanoprost (Xalatan) 1 drop QHS OU Last administered on 09/30/18at 20:06; Start 09/22/18 at 21:00 Cephalexin HCl (Keflex) 500 mg TID PO Last administered on 09/28/18at 12:10; Start 09/22/18 at 09:00; Stop 09/28/18 at 14:53; Status DC Naproxen (Naprosyn) 250 mg PRN Q12HR PRN PO INFLAMMATION PAIN Last administered on 09/27/18at 14:04; Start 09/22/18 at 20:30 Lactobacillus Rhamnosus (Culturelle) 1 cap BID PO Last administered on at 08:10; Start 09/23/18 at 21:00 Sertraline HCl (Zoloft) 50 mg DAILY PO Last administered on 09/27/18at 08:50; Start 09/25/18 at 09:00; Stop 09/27/18 at 16:51; Status DC Mirtazapine (Remeron) 7.5 mg QHS PO Last administered on 09/30/18at 19:51; Start 09/24/18 at 21:00 Trazodone HCl (Desyrel) 50 mg QHS PO Last administered on 09/28/18at 18:26; Start 09/25/18 at 21:00; Stop 09/29/18 at 18:41; Status DC Trazodone HCl (Desyrel) 50 mg PRN QHS PRN PO INSOMNIA, MAY REPEAT X1; Start at 18:15; Stop 09/29/18 at 18:41; Status DC Quetiapine Fumarate (SEROquel) 50 mg DAILY@1700 PO Last administered on at 17:28; Start 09/26/18 at 17:00; Stop 09/28/18 at 16:46; Status DC Amlodipine Besylate (Norvasc) 10 mg DAILY PO Last administered on 10/01/18at 08: 11; Start 09/28/18 at 09:00 Thiothixene (Navane) 1 mg HS PO Last administered on 09/28/18at 19:46; Start 09/28/18 at 21:00; Stop 09/29/18 at 18:25; Status DC Thiothixene (Navane) 2 mg HS PO Last administered on 09/30/18at 19:53; Start at 21:00 Trazodone HCl (Desyrel) 100 mg PRN QHS PRN PO INSOMNIA, MAY REPEAT X1; Start 09/29/18 at 18:45 Trazodone HCl (Desyrel) 100 mg QHS PO Last administered on 09/30/18at 19:52; Start 09/29/18 at 21:00 Active Scripts Active Reported Aleve (Naproxen Sodium) 220 Mg Tablet 220 Mg PO PRN Q12HR PRN Lorazepam 1 Mg Tablet 1 Mg PO PRN BID PRN Latanoprost 2.5 Ml Drops 1 Drop EACHEYE QHS I have reviewed the current psychotropics carefully including drug interactions. Risk benefit ratio favors no change other than as noted in my dictated progress note. Diagnosis: Problems: (1) Anxiety disorder (2) Dementia, vascular, with depression (3) Dementia, vascular, with delusions (4) Impulse control disorder (5) Urinary tract infection DELANEY AGRCIA MD Oct 01, 2018 10:12
[2018-10-01 16:17] VITALS: BP 110/76
[2018-10-01] MEDS: THIOTHIXENE 1 MG PO SCH (20:13)
[2018-10-01] MEDS: traZODone 50 MG TABLET. PO SCH (20:13)
[2018-10-01] MEDS: MIRTAZAPINE 7.5 MG TABLET. PO SCH (20:13)
[2018-10-01] MEDS: LATANOPROST 0.005% OPHTH SOLUTION 2.5ML BOTTLE. OU SCH (20:14)
--- NOTE | 2018-10-01 22:46 | PDOC ---
Exam Note: Severo Note: Please also refer to the separate dictated note~for this date of service dictated separately.~Patient seen individually. Discussed the patient with Nursing staff reviewed the chart.~Reviewed interim history and current functioning. Reviewed vital signs,~Labs/ Radiology~and current medications noted below. Continue current treatment with the changes noted in the dictated addendum note Assessment: Vital Signs: Vital Signs Date Time Temp Pulse Resp B/P (MAP) Pulse Ox O2 Delivery O2 Flow Rate FiO2 10/01/18 16:17 97.5 69 16 110/76 (87) 99 09/29/18 15:59 Room Air I&O Intake and Output 10/01/18 07:00 Intake Total 960 ml Balance 960 ml Intake Oral 960 ml Current Medications: Meds: Current Medications Acetaminophen (Tylenol) 650 mg PRN Q6HRS PRN PO PAIN / TEMP Last administered on 09/27/18at 18:43; Start 09/21/18 at 23:00 Al Hydroxide/Mg Hydroxide (Mylanta Plus Xs) 15 ml PRN AFTMEALHC PRN PO DYSPEPSIA; Start 09/21/18 at 23:00 Magnesium Hydroxide (Milk Of Magnesia) 2,400 mg PRN QHS PRN PO CONSTIPATION; Start 09/21/18 at 23:00 Lorazepam (Ativan) 1 mg PRN BID PRN PO ANXIETY / AGITATION Last administered on 10/01/18at 03:54; Start 09/21/18 at 23:00 Acetaminophen/ Hydrocodone Bitart (Lortab 5/325) 1 tab PRN TID PRN PO PAIN; Start 09/21/18 at 23:15; Stop 09/22/18 at 20:23; Status DC Latanoprost (Xalatan) 1 drop QHS OU Last administered on 10/01/18at 20:14; Start 09/22/18 at 21:00 Cephalexin HCl (Keflex) 500 mg TID PO Last administered on 09/28/18at 12:10; Start 09/22/18 at 09:00; Stop 09/28/18 at 14:53; Status DC Naproxen (Naprosyn) 250 mg PRN Q12HR PRN PO INFLAMMATION PAIN Last administered on 09/27/18at 14:04; Start 09/22/18 at 20:30 Lactobacillus Rhamnosus (Culturelle) 1 cap BID PO Last administered on 20:13; Start 09/23/18 at 21:00 Sertraline HCl (Zoloft) 50 mg DAILY PO Last administered on 09/27/18at 08:50; Start 09/25/18 at 09:00; Stop 09/27/18 at 16:51; Status DC Mirtazapine (Remeron) 7.5 mg QHS PO Last administered on 10/01/18 20:13; Start 09/24/18 at 21:00 Trazodone HCl (Desyrel) 50 mg QHS PO Last administered on 09/28/18at 18:26; Start 09/25/18 at 21:00; Stop 09/29/18 at 18:41; Status DC Trazodone HCl (Desyrel) 50 mg PRN QHS PRN PO INSOMNIA, MAY REPEAT X1; Start at 18:15; Stop 09/29/18 at 18:41; Status DC Quetiapine Fumarate (SEROquel) 50 mg DAILY@1700 PO Last administered on at 17:28; Start 09/26/18 at 17:00; Stop 09/28/18 at 16:46; Status DC Amlodipine Besylate (Norvasc) 10 mg DAILY PO Last administered on 10/01/18at 08: 11; Start 09/28/18 at 09:00 Thiothixene (Navane) 1 mg HS PO Last administered on 09/28/18at 19:46; Start 09/28/18 at 21:00; Stop 09/29/18 at 18:25; Status DC Thiothixene (Navane) 2 mg HS PO Last administered on 10/01/18at 20:13; Start at 21:00 Trazodone HCl (Desyrel) 100 mg PRN QHS PRN PO INSOMNIA, MAY REPEAT X1; Start 09/29/18 at 18:45 Trazodone HCl (Desyrel) 100 mg QHS PO Last administered on 10/01/18at 20:13; Start 09/29/18 at 21:00 Active Scripts Active Reported Aleve (Naproxen Sodium) 220 Mg Tablet 220 Mg PO PRN Q12HR PRN Lorazepam 1 Mg Tablet 1 Mg PO PRN BID PRN Latanoprost 2.5 Ml Drops 1 Drop EACHEYE QHS I have reviewed the current psychotropics carefully including drug interactions. Risk benefit ratio favors no change other than as noted in my dictated progress note. Diagnosis: Problems: (1) Anxiety disorder (2) Dementia, vascular, with depression (3) Dementia, vascular, with delusions (4) Impulse control disorder (5) Urinary tract infection DELANEY GARCIA MD Oct 01, 2018 22:46
--- NOTE | 2018-10-02 02:49 | PN ---
DATE: 09/30/2018 PSYCHIATRIC PROGRESS NOTE This is a late entry of 09/30/2017, covers elements not covered in my initial note. SUBJECTIVE: I met with the patient in the evening. The patient slept 7 hours previous night. She is "less eccentric" per nursing report. She is still disorganized in her speech, which is rapid, pressured at times as I met with her. No CV, , pulmonary, eye, ENT system symptoms on review. She complained of having constipation as I met with her, but nursing staff said she had a bowel movement on 09/30/2018. She was oblivious of this. MENTAL STATUS EXAM: Oriented to herself and situation. Speech coherent, pressured at times. Abstraction fair, computation impaired, language function intact, attention span short. Mood and affect still somewhat labile. LABORATORY DATA: Labs reviewed. IMPRESSION: Bipolar 1 disorder, mixed with psychotic features; anxiety disorder, unspecified. Rest unchanged. PLAN: Continue Navane 2 mg p.o. at bedtime, may need to increase further in due course. Rest unchanged per initial note. MAN Manuel GARCIA MD DR: GUSTAVO/anahi JOB#: [id number] / [id number]
[2018-10-02] MEDS: NAPROXEN 250 MG TABLET PO PRN (04:02)
[2018-10-02 06:13] VITALS: BP 131/80
[2018-10-02] MEDS: amLODIPine BESYLATE 10 MG TABLET PO SCH (09:02)
[2018-10-02] MEDS: THIOTHIXENE 1 MG PO SCH (12:33)
[2018-10-02 16:32] VITALS: BP 99/69
[2018-10-02] MEDS: MIRTAZAPINE 7.5 MG TABLET. PO SCH (20:46)
[2018-10-02] MEDS: traZODone 50 MG TABLET. PO SCH (20:47)
[2018-10-02] MEDS: LATANOPROST 0.005% OPHTH SOLUTION 2.5ML BOTTLE. OU SCH (20:48)
--- NOTE | 2018-10-02 22:45 | PDOC ---
Exam Note: Severo Note: Please also refer to the separate dictated note~for this date of service dictated separately.~Patient seen individually. Discussed the patient with Nursing staff reviewed the chart.~Reviewed interim history and current functioning. Reviewed vital signs,~Labs/ Radiology~and current medications noted below. Continue current treatment with the changes noted in the dictated addendum note Assessment: Vital Signs: Vital Signs Date Time Temp Pulse Resp B/P (MAP) Pulse Ox O2 Delivery O2 Flow Rate FiO2 10/02/18 16:32 97.8 99 16 99/69 (79) 100 Room Air I&O Intake and Output 10/02/18 07:00 Intake Total 580 ml Balance 580 ml Intake Oral 580 ml Current Medications: Meds: Current Medications Acetaminophen (Tylenol) 650 mg PRN Q6HRS PRN PO PAIN / TEMP Last administered on 09/27/18at 18:43; Start 09/21/18 at 23:00 Al Hydroxide/Mg Hydroxide (Mylanta Plus Xs) 15 ml PRN AFTMEALHC PRN PO DYSPEPSIA; Start 09/21/18 at 23:00 Magnesium Hydroxide (Milk Of Magnesia) 2,400 mg PRN QHS PRN PO CONSTIPATION; Start 09/21/18 at 23:00 Lorazepam (Ativan) 1 mg PRN BID PRN PO ANXIETY / AGITATION Last administered on 10/01/18at 03:54; Start 09/21/18 at 23:00 Acetaminophen/ Hydrocodone Bitart (Lortab 5/325) 1 tab PRN TID PRN PO PAIN; Start 09/21/18 at 23:15; Stop 09/22/18 at 20:23; Status DC Latanoprost (Xalatan) 1 drop QHS OU Last administered on 10/02/18at 20:48; Start 09/22/18 at 21:00 Cephalexin HCl (Keflex) 500 mg TID PO Last administered on 09/28/18at 12:10; Start 09/22/18 at 09:00; Stop 09/28/18 at 14:53; Status DC Naproxen (Naprosyn) 250 mg PRN Q12HR PRN PO INFLAMMATION PAIN Last administered on 10/02/18at 04:02; Start 09/22/18 at 20:30 Lactobacillus Rhamnosus (Culturelle) 1 cap BID PO Last administered on at 20:13; Start 09/23/18 at 21:00; Stop 10/02/18 at 03:53; Status DC Sertraline HCl (Zoloft) 50 mg DAILY PO Last administered on 09/27/18at 08:50; Start 09/25/18 at 09:00; Stop 09/27/18 at 16:51; Status DC Mirtazapine (Remeron) 7.5 mg QHS PO Last administered on 10/02/18at 20:46; Start 09/24/18 at 21:00 Trazodone HCl (Desyrel) 50 mg QHS PO Last administered on 09/28/18at 18:26; Start 09/25/18 at 21:00; Stop 09/29/18 at 18:41; Status DC Trazodone HCl (Desyrel) 50 mg PRN QHS PRN PO INSOMNIA, MAY REPEAT X1; Start at 18:15; Stop 09/29/18 at 18:41; Status DC Quetiapine Fumarate (SEROquel) 50 mg DAILY@1700 PO Last administered on at 17:28; Start 09/26/18 at 17:00; Stop 09/28/18 at 16:46; Status DC Amlodipine Besylate (Norvasc) 10 mg DAILY PO Last administered on 10/02/18at 09: 02; Start 09/28/18 at 09:00 Thiothixene (Navane) 1 mg HS PO Last administered on 09/28/18at 19:46; Start 09/28/18 at 21:00; Stop 09/29/18 at 18:25; Status DC Thiothixene (Navane) 2 mg HS PO Last administered on 10/02/18at 12:33; Start at 21:00 Trazodone HCl (Desyrel) 100 mg PRN QHS PRN PO INSOMNIA, MAY REPEAT X1; Start 09/29/18 at 18:45 Trazodone HCl (Desyrel) 100 mg QHS PO Last administered on 10/02/18at 20:47; Start 09/29/18 at 21:00 Olanzapine (ZyPREXA ZYDIS) 2.5 mg PRN Q2HR PRN PO PSYCHOSIS; Start 10/02/18 at 12:45 Active Scripts Active Reported Aleve (Naproxen Sodium) 220 Mg Tablet 220 Mg PO PRN Q12HR PRN Lorazepam 1 Mg Tablet 1 Mg PO PRN BID PRN Latanoprost 2.5 Ml Drops 1 Drop EACHEYE QHS I have reviewed the current psychotropics carefully including drug interactions. Risk benefit ratio favors no change other than as noted in my dictated progress note. Diagnosis: Problems: (1) Anxiety disorder (2) Dementia, vascular, with depression (3) Dementia, vascular, with delusions (4) Impulse control disorder (5) Urinary tract infection DELANEY GARCIA MD Oct 02, 2018 22:45
--- NOTE | 2018-10-03 02:40 | PN ---
DATE: 10/01/2018 PSYCHIATRIC PROGRESS NOTE This late entry 10/01/2018 covers elements not covered in my initial note. SUBJECTIVE: I met with the patient in the evening and earlier in the day discussed the patient with Surekha Segal, who talked to the and I also talked to the at some length over the phone evening of 10/01/2018 regarding the patient's progress. Initially was concerned, the patient was not making enough progress, but then when I talked to him late in the evening, he said he had visited her a short while earlier and her thought processes were more coherent and "this is the best conversation I have had with her in many months." The patient slept 2 hours previous night, has had a better day on 10/01/2018, better conversation, compliant with medications, appears "less eccentric" per nursing report. REVIEW OF SYSTEMS: No CV, , pulmonary, eye, ENT system symptoms on review. MENTAL STATUS EXAM: Oriented to herself and situation. Speech is coherent, still somewhat pressured. Abstraction fair, computation impaired, language function intact, attention span short. Mood and affect still somewhat manic, grandiose, but much improved, less psychotic. LABORATORY DATA: Reviewed. IMPRESSION: Bipolar 1 disorder, manic with psychotic features, in partial remission; anxiety disorder, unspecified; impulse control disorder, unspecified. PLAN: Continue Navane 2 mg p.o. at bedtime, Remeron 7.5 mg at bedtime, trazodone 50 at bedtime and may repeat x 1, Ativan p.r.n. Consider Depakote as a mood stabilizer in due course, may need to increase Navane as well. MAN Manuel GARCIA MD DR: GUSTAVO/anahi JOB#: [id number] / [id number]
[2018-10-03] MEDS: NAPROXEN 250 MG TABLET PO PRN (04:45)
[2018-10-03 06:26] VITALS: BP 132/82
[2018-10-03] MEDS: ACETAMINOPHEN 325 MG TABLET PO PRN (06:43)
[2018-10-03] MEDS: amLODIPine BESYLATE 10 MG TABLET PO SCH (08:05)
[2018-10-03 16:22] VITALS: BP 139/83
[2018-10-03] MEDS: PATCH REMOVAL. MC SCH (17:21)
[2018-10-03] MEDS: traZODone 50 MG TABLET. PO SCH (20:39)
[2018-10-03] MEDS: MIRTAZAPINE 7.5 MG TABLET. PO SCH (20:39)
[2018-10-03] MEDS: THIOTHIXENE 1 MG PO SCH (20:40)
[2018-10-03] MEDS: LATANOPROST 0.005% OPHTH SOLUTION 2.5ML BOTTLE. OU SCH (20:42)
--- NOTE | 2018-10-03 22:46 | PDOC ---
Exam Note: Severo Note: Please also refer to the separate dictated note~for this date of service dictated separately.~Patient seen individually. Discussed the patient with Nursing staff reviewed the chart.~Reviewed interim history and current functioning. Reviewed vital signs,~Labs/ Radiology~and current medications noted below. Continue current treatment with the changes noted in the dictated addendum note Assessment: Vital Signs: Vital Signs Date Time Temp Pulse Resp B/P (MAP) Pulse Ox O2 Delivery O2 Flow Rate FiO2 10/03/18 16:22 98.4 97 20 139/83 (101) 96 10/02/18 16:32 Room Air I&O Intake and Output 10/03/18 07:00 Intake Total 940 ml Balance 940 ml Intake Oral 940 ml Current Medications: Meds: Current Medications Acetaminophen (Tylenol) 650 mg PRN Q6HRS PRN PO PAIN / TEMP Last administered on 10/03/18at 06:43; Start 09/21/18 at 23:00 Al Hydroxide/Mg Hydroxide (Mylanta Plus Xs) 15 ml PRN AFTMEALHC PRN PO DYSPEPSIA; Start 09/21/18 at 23:00 Magnesium Hydroxide (Milk Of Magnesia) 2,400 mg PRN QHS PRN PO CONSTIPATION; Start 09/21/18 at 23:00 Lorazepam (Ativan) 1 mg PRN BID PRN PO ANXIETY / AGITATION Last administered on 10/01/18at 03:54; Start 09/21/18 at 23:00 Acetaminophen/ Hydrocodone Bitart (Lortab 5/325) 1 tab PRN TID PRN PO PAIN; Start 09/21/18 at 23:15; Stop 09/22/18 at 20:23; Status DC Latanoprost (Xalatan) 1 drop QHS OU Last administered on 10/03/18at 20:42; Start 09/22/18 at 21:00 Cephalexin HCl (Keflex) 500 mg TID PO Last administered on 09/28/18at 12:10; Start 09/22/18 at 09:00; Stop 09/28/18 at 14:53; Status DC Naproxen (Naprosyn) 250 mg PRN Q12HR PRN PO INFLAMMATION PAIN Last administered on 10/03/18at 04:45; Start 09/22/18 at 20:30 Lactobacillus Rhamnosus (Culturelle) 1 cap BID PO Last administered on at 20:13; Start 09/23/18 at 21:00; Stop 10/02/18 at 03:53; Status DC Sertraline HCl (Zoloft) 50 mg DAILY PO Last administered on 09/27/18at 08:50; Start 09/25/18 at 09:00; Stop 09/27/18 at 16:51; Status DC Mirtazapine (Remeron) 7.5 mg QHS PO Last administered on 10/03/18at 20:39; Start 09/24/18 at 21:00 Trazodone HCl (Desyrel) 50 mg QHS PO Last administered on 09/28/18at 18:26; Start 09/25/18 at 21:00; Stop 09/29/18 at 18:41; Status DC Trazodone HCl (Desyrel) 50 mg PRN QHS PRN PO INSOMNIA, MAY REPEAT X1; Start at 18:15; Stop 09/29/18 at 18:41; Status DC Quetiapine Fumarate (SEROquel) 50 mg DAILY@1700 PO Last administered on at 17:28; Start 09/26/18 at 17:00; Stop 09/28/18 at 16:46; Status DC Amlodipine Besylate (Norvasc) 10 mg DAILY PO Last administered on 10/03/18at 08: 05; Start 09/28/18 at 09:00 Thiothixene (Navane) 1 mg HS PO Last administered on 09/28/18at 19:46; Start 09/28/18 at 21:00; Stop 09/29/18 at 18:25; Status DC Thiothixene (Navane) 2 mg HS PO Last administered on 10/03/18at 20:40; Start at 21:00 Trazodone HCl (Desyrel) 100 mg PRN QHS PRN PO INSOMNIA, MAY REPEAT X1; Start 09/29/18 at 18:45 Trazodone HCl (Desyrel) 100 mg QHS PO Last administered on 10/03/18at 20:39; Start 09/29/18 at 21:00 Olanzapine (ZyPREXA ZYDIS) 2.5 mg PRN Q2HR PRN PO PSYCHOSIS; Start 10/02/18 at 12:45 Lidocaine (Lidoderm) 1 patch DAILY TD ; Start 10/04/18 at 09:00 Miscellaneous (Lidoderm Patch Removal) 1 ea QHS MC ; Start 10/03/18 at 21:00 Active Scripts Active Reported Aleve (Naproxen Sodium) 220 Mg Tablet 220 Mg PO PRN Q12HR PRN Lorazepam 1 Mg Tablet 1 Mg PO PRN BID PRN Latanoprost 2.5 Ml Drops 1 Drop EACHEYE QHS I have reviewed the current psychotropics carefully including drug interactions. Risk benefit ratio favors no change other than as noted in my dictated progress note. Diagnosis: Problems: (1) Anxiety disorder (2) Dementia, vascular, with depression (3) Dementia, vascular, with delusions (4) Impulse control disorder (5) Urinary tract infection DELANEY GARCIA MD Oct 03, 2018 22:46
--- NOTE | 2018-10-04 02:39 | PN ---
DATE: 10/02/2018 This is a late entry for date of service 10/02/2018 and covers elements not covered in my initial note. SUBJECTIVE: I met with the patient in the evening. The patient slept 6-1/2 hours previous night. She is somewhat better, more coherent in her thought processes, but did get anxious, somewhat paranoid earlier in the day, received Zyprexa p.r.n. with good relief. She did receive her Navane 2 mg earlier than she was scheduled to have and states after that she has done much "better." REVIEW OF SYSTEMS: No CV, , pulmonary, eye, ENT system symptoms on review. MENTAL STATUS EXAM: Oriented to herself and situation. Speech coherent, less pressured. Abstraction fair, computation impaired, language function intact, attention span short. Mood and affect, lability is improved. No suicidal or homicidal ideation. LABORATORY DATA: Reviewed. IMPRESSION: Bipolar 1 disorder, mixed with psychotic features; cognitive disorder, unspecified; anxiety disorder, unspecified. Rest unchanged. PLAN: No change from initial note. We may increase the Navane further, but I would like to wait a day or 2. We will avoid Depakote as a mood stabilizer for now since in the past, she has turned around quite well on the Navane 30 years ago and never needed any other psychotropics in between for almost 3 decades. I would like to keep the psychotropics to the minimal that we can get by with given the risk/benefit ratio. DELANEY GARCIA MD DR: GUSTAVO/anahi JOB#: [id number] / [id number]
[2018-10-04 06:19] VITALS: BP 107/75
[2018-10-04] MEDS: LIDOCAINE (700MG/PATCH) PATCH. TD SCH (08:13)
[2018-10-04] MEDS: amLODIPine BESYLATE 10 MG TABLET PO SCH (08:13)
[2018-10-04 16:12] VITALS: BP 130/85
[2018-10-04] MEDS: MIRTAZAPINE 7.5 MG TABLET. PO SCH (21:00)
[2018-10-04] MEDS: THIOTHIXENE 1 MG PO SCH (21:00)
[2018-10-04] MEDS: LATANOPROST 0.005% OPHTH SOLUTION 2.5ML BOTTLE. OU SCH (21:00)
[2018-10-04] MEDS: traZODone 50 MG TABLET. PO SCH (21:00)
[2018-10-04] MEDS: PATCH REMOVAL. MC SCH (21:00)
[2018-10-05 06:08] VITALS: BP 152/90
[2018-10-05] MEDS: amLODIPine BESYLATE 10 MG TABLET PO SCH (08:08)
[2018-10-05] MEDS: LIDOCAINE (700MG/PATCH) PATCH. TD SCH (08:09)
[2018-10-05] MEDS: NYSTATIN TOPICAL POWDER 15GM BOTTLE. TP SCH ×2 (12:49→20:09)
[2018-10-05 16:54] VITALS: BP 170/70
[2018-10-05] MEDS: MIRTAZAPINE 7.5 MG TABLET. PO SCH (20:08)
[2018-10-05] MEDS: traZODone 50 MG TABLET. PO SCH (20:08)
[2018-10-05] MEDS: traZODone 50 MG TABLET. PO PRN (20:09)
[2018-10-05] MEDS: THIOTHIXENE 1 MG PO SCH (20:09)
[2018-10-05] MEDS: lamoTRIgine 25 MG TABLET. PO SCH (20:10)
[2018-10-05] MEDS: LATANOPROST 0.005% OPHTH SOLUTION 2.5ML BOTTLE. OU SCH (20:11)
[2018-10-05] MEDS: PATCH REMOVAL. MC SCH (21:00)
--- NOTE | 2018-10-05 22:39 | PN ---
DATE: 10/03/2018 PSYCHIATRIC PROGRESS NOTE This late entry 10/03/2018 covers elements not covered in my initial note. SUBJECTIVE: I met with the patient in the evening. I met with her in her room. She slept 8 hours previous evening, anxious in the morning, less flighty, more organized in her thought processes, quite evident as I met with her individually. She is compliant with her medications. She is pleasant, smiling. REVIEW OF SYSTEMS: No CV, , pulmonary, eye, ENT system symptoms on review. Ambulation impaired with walker. MENTAL STATUS EXAM: Oriented to herself and situation. Speech is coherent, abstraction fair, computation impaired, language function intact, attention span short. Mood and affect less labile. LABORATORY DATA: Reviewed. IMPRESSION: Bipolar 1 disorder, manic, in partial remission; anxiety disorder, unspecified. Rest unchanged. PLAN: No change from initial note. MAN Manuel GARCIA MD DR: GUSTAVO/anahi JOB#: [id number] / [id number]
--- NOTE | 2018-10-05 22:46 | PDOC ---
Exam Note: Severo Note: Late entry for DOS 10.04.2018. Please also refer to the separate dictated note~ for this date of service dictated separately.~Patient seen individually. Discussed the patient with Nursing staff reviewed the chart.~Reviewed interim history and current functioning. Reviewed vital signs,~Labs/ Radiology~and current medications noted below. Continue current treatment with the changes noted in the dictated addendum note Assessment: Vital Signs: VS - Last 72 Hours, by Label Date Time Temp Pulse Resp B/P (MAP) Pulse Ox O2 Delivery O2 Flow Rate FiO2 10/05/18 16:54 98.6 92 18 170/70 (103) 98 Room Air 10/05/18 08:08 99 152/90 10/05/18 06:08 97.0 99 21 152/90 (110) 99 10/04/18 16:12 98.3 92 20 130/85 (100) 94 Room Air 10/04/18 08:13 90 107/75 10/04/18 06:19 98.4 90 18 107/75 (86) 98 10/03/18 16:22 98.4 97 20 139/83 (101) 96 10/03/18 08:05 98 132/82 10/03/18 06:26 97.5 98 16 132/82 (99) 99 Vital Signs Date Time Temp Pulse Resp B/P (MAP) Pulse Ox O2 Delivery O2 Flow Rate FiO2 10/05/18 16:54 98.6 92 18 170/70 (103) 98 Room Air I&O Intake and Output 10/05/18 07:00 Intake Total 1200 ml Balance 1200 ml Intake Oral 1200 ml Current Medications: Meds: Current Medications Acetaminophen (Tylenol) 650 mg PRN Q6HRS PRN PO PAIN / TEMP Last administered on 10/03/18at 06:43; Start 09/21/18 at 23:00 Al Hydroxide/Mg Hydroxide (Mylanta Plus Xs) 15 ml PRN AFTMEALHC PRN PO DYSPEPSIA; Start 09/21/18 at 23:00 Magnesium Hydroxide (Milk Of Magnesia) 2,400 mg PRN QHS PRN PO CONSTIPATION; Start 09/21/18 at 23:00 Lorazepam (Ativan) 1 mg PRN BID PRN PO ANXIETY / AGITATION Last administered on 10/01/18at 03:54; Start 09/21/18 at 23:00 Acetaminophen/ Hydrocodone Bitart (Lortab 5/325) 1 tab PRN TID PRN PO PAIN; Start 09/21/18 at 23:15; Stop 09/22/18 at 20:23; Status DC Latanoprost (Xalatan) 1 drop QHS OU Last administered on 10/05/18at 20:11; Start 09/22/18 at 21:00 Cephalexin HCl (Keflex) 500 mg TID PO Last administered on 09/28/18at 12:10; Start 09/22/18 at 09:00; Stop 09/28/18 at 14:53; Status DC Naproxen (Naprosyn) 250 mg PRN Q12HR PRN PO INFLAMMATION PAIN Last administered on 10/03/18at 04:45; Start 09/22/18 at 20:30 Lactobacillus Rhamnosus (Culturelle) 1 cap BID PO Last administered on at 20:13; Start 09/23/18 at 21:00; Stop 10/02/18 at 03:53; Status DC Sertraline HCl (Zoloft) 50 mg DAILY PO Last administered on 09/27/18at 08:50; Start 09/25/18 at 09:00; Stop 09/27/18 at 16:51; Status DC Mirtazapine (Remeron) 7.5 mg QHS PO Last administered on 10/05/18at 20:08; Start 09/24/18 at 21:00 Trazodone HCl (Desyrel) 50 mg QHS PO Last administered on 09/28/18at 18:26; Start 09/25/18 at 21:00; Stop 09/29/18 at 18:41; Status DC Trazodone HCl (Desyrel) 50 mg PRN QHS PRN PO INSOMNIA, MAY REPEAT X1; Start at 18:15; Stop 09/29/18 at 18:41; Status DC Quetiapine Fumarate (SEROquel) 50 mg DAILY@1700 PO Last administered on at 17:28; Start 09/26/18 at 17:00; Stop 09/28/18 at 16:46; Status DC Amlodipine Besylate (Norvasc) 10 mg DAILY PO Last administered on 10/05/18at 08: 08; Start 09/28/18 at 09:00 Thiothixene (Navane) 1 mg HS PO Last administered on 09/28/18at 19:46; Start 09/28/18 at 21:00; Stop 09/29/18 at 18:25; Status DC Thiothixene (Navane) 2 mg HS PO Last administered on 10/05/18 20:09; Start at 21:00 Trazodone HCl (Desyrel) 100 mg PRN QHS PRN PO INSOMNIA, MAY REPEAT X1 Last administered on 10/05/18at 20:09; Start 09/29/18 at 18:45 Trazodone HCl (Desyrel) 100 mg QHS PO Last administered on 10/05/18 20:08; Start 09/29/18 at 21:00 Olanzapine (ZyPREXA ZYDIS) 2.5 mg PRN Q2HR PRN PO PSYCHOSIS; Start 10/02/18 at 12:45 Lidocaine (Lidoderm) 1 patch DAILY TD Last administered on 10/05/18at 08:09; Start 10/04/18 at 09:00 Miscellaneous (Lidoderm Patch Removal) 1 ea QHS MC Last administered on at 21:00; Start 10/03/18 at 21:00 Nystatin (Nystop) 1 ginny BID TP Last administered on 10/05/18at 20:09; Start 10/05/18 at 12:00 Lamotrigine (LaMICtal) 25 mg HS PO Last administered on 10/05/18at 20:10; Start 10/05/18 at 21:00; Stop 10/08/18 at 09:00 Lamotrigine (LaMICtal) 50 mg QHS PO ; Start 10/08/18 at 21:00 Active Scripts Active Reported Aleve (Naproxen Sodium) 220 Mg Tablet 220 Mg PO PRN Q12HR PRN Lorazepam 1 Mg Tablet 1 Mg PO PRN BID PRN Latanoprost 2.5 Ml Drops 1 Drop EACHEYE QHS I have reviewed the current psychotropics carefully including drug interactions. Risk benefit ratio favors no change other than as noted in my dictated progress note. Diagnosis: Problems: (1) Anxiety disorder (2) Dementia, vascular, with depression (3) Dementia, vascular, with delusions (4) Impulse control disorder (5) Urinary tract infection DELANEY GARCIA MD Oct 05, 2018 22:46
[2018-10-06 05:54] VITALS: BP 139/84
--- NOTE | 2018-10-06 07:35 | PN ---
DATE: 10/04/2018 PSYCHIATRIC PROGRESS NOTE This late entry 10/04/2018 covers elements not covered in my initial note. SUBJECTIVE: I met with the patient in the evening. Staffed at treatment team meeting with the entire team in the morning. Reviewed the patient's progress, communication with her , responding to Navane 2 mg at bedtime. The patient slept 4 hours previous evening. We discussed outpatient followup at [facility] post-discharge. REVIEW OF SYSTEMS: Reviewed her history, diagnosis as well at length. No CV, , pulmonary, eye system symptoms on review. Gait unsteady with walker. MENTAL STATUS EXAM: Reasonably oriented. Speech is coherent, less pressured. Abstraction fair, computation impaired, language function intact. Mood and affect more animated, pleasant, verbal, sat with her in her room. LABORATORY DATA: Reviewed. IMPRESSION: Bipolar 1 disorder, manic with psychotic features, in partial remission; anxiety disorder, unspecified. PLAN: No change from initial note. Continue Navane 2 mg at bedtime. We will not increase for now. Rest unchanged. MAN Manuel GARCIA MD DR: GUSTAVO/anahi JOB#: [id number] / [id number]
[2018-10-06] MEDS: LIDOCAINE (700MG/PATCH) PATCH. TD SCH (08:05)
[2018-10-06] MEDS: amLODIPine BESYLATE 10 MG TABLET PO SCH (08:05)
[2018-10-06] MEDS: NYSTATIN TOPICAL POWDER 15GM BOTTLE. TP SCH ×2 (08:07→20:06)
[2018-10-06 08:29] LABS: BASO % 1 % (0-3); EOS # 0.1 x10^3/uL (0.0-0.7); EOS % 2 % (0-3); HEMATOCRIT 43.8 % (36.0-47.0); HEMOGLOBIN 14.8 g/dL (12.0-15.5); LYMPH # 1.4 x10^3/uL (1.0-4.8); LYMPH % 22 % (24-48); MEAN CORPUSCULAR HEMOGLOBIN 33 pg (25-35); MEAN CORPUSCULAR HGB CONC 34 g/dL (31-37); MEAN CORPUSCULAR VOLUME 97 fL (79-100); MONO # 0.6 x10^3/uL (0.0-1.1); MONO % 10 % (0-9); NEUT # 4.1 x10^3uL (1.8-7.7); NEUT % 66 % (31-73); PLATELET COUNT 259 x10^3/uL (140-400); RED BLOOD COUNT 4.52 x10^6/uL (3.50-5.40); RED CELL DISTRIBUTION WIDTH 12.9 % (11.5-14.5); WHITE BLOOD COUNT 6.3 x10^3/uL (4.0-11.0)
[2018-10-06 08:42] LABS: ALBUMIN 3.7 g/dL (3.4-5.0); ALBUMIN/GLOBULIN RATIO 1.1 (1.0-1.7); CALCIUM 9.2 mg/dL (8.5-10.1); CREATININE 0.9 mg/dL (0.6-1.0); POTASSIUM 4.1 mmol/L (3.5-5.1); TOTAL BILIRUBIN 0.7 mg/dL (0.2-1.0); TOTAL PROTEIN 7.2 g/dL (6.4-8.2)
[2018-10-06 15:58] VITALS: BP 136/88
[2018-10-06] MEDS: MIRTAZAPINE 7.5 MG TABLET. PO SCH (20:05)
[2018-10-06] MEDS: lamoTRIgine 25 MG TABLET. PO SCH (20:06)
[2018-10-06] MEDS: traZODone 50 MG TABLET. PO SCH (20:06)
[2018-10-06] MEDS: PATCH REMOVAL. MC SCH (20:06)
[2018-10-06] MEDS: LATANOPROST 0.005% OPHTH SOLUTION 2.5ML BOTTLE. OU SCH (20:07)
[2018-10-06] MEDS: THIOTHIXENE 1 MG PO SCH (20:07)
--- NOTE | 2018-10-06 22:43 | PN ---
DATE: 10/05/2018 This late entry for 10/05/2018 covers elements not covered in my initial note. SUBJECTIVE: I met with the patient in the evening. Overall, the patient has done better. She slept 4-1/2 hours previous night, somewhat anxious, but much more coherent. Thought processes appear goal-directed. We will use trazodone at night p.r.n. to help her sleep. She states she feels depressed and is fearful that the last time she got manic 30 years ago. After she came off the mariana, she was depressed for 2 years. She states during this time, she went to work off and on with great difficulty, but at times could not comb her hair or do things to take care of herself and she wants to prevent this happening again this time. She states she feels the mariana seems to be subsiding, but she is getting more depressed. REVIEW OF SYSTEMS: No CV, , pulmonary, eye, ENT system symptoms on review. MENTAL STATUS EXAM: Reasonably oriented to herself and situation. Speech is coherent, abstraction fair, computation impaired, language function intact, attention span short. Mood and affect appear somewhat dysphoric, anxious. LABORATORY DATA: Reviewed. IMPRESSION: Bipolar 1 disorder, manic with psychotic features, gradually getting more depressed; anxiety disorder, unspecified; cognitive disorder, unspecified; impulse control disorder, unspecified. PLAN: Continue psychotropics from initial note. Lengthy discussion about the treatment options. One option was adding a low-dose antidepressant, but given a history of mood swings and depressive symptoms that seems to be starting, we will start Lamictal 25 mg at bedtime for 3 days increasing to 50 mg at bedtime. Continue rest unchanged from initial note. Dr. Sam will resume care of the patient over the next 1 week or so while I am on vacation. MAN Manuel GARCIA MD DR: GUSTAVO/anahi JOB#: [id number] / [id number]
[2018-10-07] MEDS: traZODone 50 MG TABLET. PO PRN ×2 (00:04→22:25)
--- NOTE | 2018-10-07 00:49 | PN ---
DATE: 10/06/2018 SUBJECTIVE: The patient was seen today, met with the staff, chart reviewed. The patient continues to be confused. Misidentification of people around her and also increased emotional lability and difficult to redirect. OBSERVATION: VITAL SIGNS: Temperature 97.8, blood pressure 139/84, pulse 89, respirations 18, O2 sat 96%. Slept only 3 hours last night. CURRENT MEDICATIONS: The patient's medications reviewed. LABORATORY DATA: Reviewed. The patient is not presenting with any major medical issues at this time. ASSESSMENT: 1. Bipolar disorder, manic with psychotic features, in partial remission. 2. Anxiety disorder, unspecified. PLAN: Continue with the current treatment plan. JAYJAY LOPEZ MD DR: NERY/anahi JOB#: [id number] / [id number]
[2018-10-07 06:09] VITALS: BP 105/72
[2018-10-07] MEDS: amLODIPine BESYLATE 10 MG TABLET PO SCH (09:00)
[2018-10-07] MEDS: NYSTATIN TOPICAL POWDER 15GM BOTTLE. TP SCH ×2 (09:00→20:30)
[2018-10-07] MEDS: LIDOCAINE (700MG/PATCH) PATCH. TD SCH ×2 (09:00→09:06)
[2018-10-07 16:51] VITALS: BP 127/84
[2018-10-07] MEDS: THIOTHIXENE 1 MG PO SCH (20:29)
[2018-10-07] MEDS: traZODone 50 MG TABLET. PO SCH (20:29)
[2018-10-07] MEDS: MIRTAZAPINE 7.5 MG TABLET. PO SCH (20:29)
[2018-10-07] MEDS: PATCH REMOVAL. MC SCH (20:30)
[2018-10-07] MEDS: LATANOPROST 0.005% OPHTH SOLUTION 2.5ML BOTTLE. OU SCH (20:30)
[2018-10-07] MEDS: lamoTRIgine 25 MG TABLET. PO SCH (20:30)
[2018-10-08] MEDS ORDERED: ACET325T9 PO (00:43)
[2018-10-08] MEDS ORDERED: LIDO700A39 TP (00:46)
[2018-10-08] MEDS ORDERED: MAGN2400 PO (00:46)
[2018-10-08] MEDS ORDERED: MAG355OR17 PO (00:46)
[2018-10-08] MEDS ORDERED: NYST15PO9 TP (00:47)
[2018-10-08] MEDS ORDERED: MIRT15TA PO (00:47)
[2018-10-08] MEDS ORDERED: OLAN5TAB5 PO (00:48)
[2018-10-08] MEDS ORDERED: AMLO10TA4 PO (00:50)
[2018-10-08] MEDS ORDERED: THIO2CAP2 PO (00:50)
[2018-10-08] MEDS ORDERED: LAMO25TA5 PO (00:52)
[2018-10-08] MEDS ORDERED: TRAZ-86 PO ×2 (00:54)
--- NOTE | 2018-10-08 03:00 | PN ---
DATE: 10/07/2018 SUBJECTIVE: The patient was seen today, met with the staff, chart reviewed. The patient continues to be confused, increased agitation, emotional lability and difficult to redirect. OBSERVATION: VITAL SIGNS: Temperature 97.7, blood pressure 105/72, pulse 92, respirations 18, O2 sat 93%. Slept about 7 hours last night. The patient's appetite decreased. MEDICATIONS: Reviewed not having any side effects. No recent falls. ASSESSMENT: 1. Bipolar disorder, manic with psychotic features, in partial remission. 2. Anxiety disorder, unspecified. PLAN: To continue with the current treatment plan. JAYJAY LOPEZ MD DR: NERY/anahi JOB#: [id number] / [id number]
[2018-10-08 06:13] VITALS: BP 116/80
[2018-10-08 09:14] VITALS: BP 116/80
[2018-10-08] MEDS: amLODIPine BESYLATE 10 MG TABLET PO SCH (09:14)
[2018-10-08] MEDS: LIDOCAINE (700MG/PATCH) PATCH. TD SCH ×2 (09:14→09:22)
[2018-10-08] MEDS: NYSTATIN TOPICAL POWDER 15GM BOTTLE. TP SCH (09:15)
--- NOTE | 2018-10-08 20:46 | DS ---
DATE OF DISCHARGE: 10/08/2018 PROGRESS NOTE AND DISCHARGE SUMMARY DISCHARGE DIAGNOSES: AXIS I: 1. Bipolar disorder, manic episode. 2. History of schizoaffective disorder, bipolar type. AXIS II: None. AXIS III: Chronic back pain, history of spinal laminectomy and recent urinary tract infection. REASON FOR ADMISSION: This 77-year-old female who was admitted to [facility] as an inpatient at [place] and referred here from [facility] where she was evaluated. Apparently, her was requesting admission because of the patient's change in her behavior, increased confusion and also being delusional and paranoid. HISTORY OF PRESENT ILLNESS: The patient apparently did fairly well for several years after she had the first nervous breakdown in 1985. At that time, she was hospitalized and she was on thiothixene, Pamelor as she continued to see the doctor regularly for about 2 years and apparently all the symptoms cleared and that she stopped taking all her medications. The noticed significant change recently. She started having racing thoughts rumination, circumstantial thinking, increased psychomotor activity and emotional lability, impulse control problems and also delusional thinking. She felt that people are talking to her. The patient also admitted to using opiates for several years, mostly on [place]. She was taking up to 6 times a day. Lately, she is trying to cut down 2 once a day and she is hoping to come off completely. The patient was also abusing lorazepam, though she denies that she abused them. She was taking up to 3 mg daily, now she is taking only 1 mg daily. The patient vaguely recalls that she was diagnosed with schizophrenia. The patient also has been drinking 2-3 shots of hard liquor, but denies that she had any problems with abusing alcohol. The patient apparently had similar symptoms in the past including auditory hallucinations. She felt that God was talking to her then. The patient also felt that she was being controlled by outside sources including controlling at night. HOSPITAL COURSE: The patient had a physical exam, routine lab work including CBC, chem profile and urinalysis. The patient's thyroid profile was within normal range. The patient's BUN was elevated at 30, glucose fluctuated borderline. The patient's total bilirubin was 1.2. The patient's ammonia level was less than 10. The patient was involved in the program including individual therapy, group therapy and activity therapy. Patient was continued on her medications including Lamictal 50 mg at night and 25 mg at night, Zyprexa 2.5 mg q. 2 hours p.r.n., trazodone 100 mg at night, thiothixene 2 mg at night, mirtazapine 7.5 mg at night, lorazepam 1 mg b.i.d. p.r.n. The patient was also on amlodipine 50 mg daily. The patient did fairly well, improved. The patient did not have any falls. The patient did not have any side effects from the medications. The patient's mental status improved considerably. The patient is able to participate in all the activities. The patient's mental status improved. She was alert, oriented and able to make eye contact. Her behavior was appropriate most of the time, still withdrawn, tend to isolate herself at times. Her speech was clear, monotone, decreased rate and rhythm. Her affect and mood showed she is not depressed, not having any psychotic symptoms. No delusional thinking. The patient's sleep and appetite have improved. The patient did not show any overt psychotic symptoms. She was oriented to time, place and person. Her memory was intact for both past and present. Judgment fair. Insight minimal. AFTERCARE PLAN: The patient was discharged to return home to her . The patient will continue on the medication listed above. The patient will continue to see her primary care doctor and also recommendation to see a psychiatrist for follow and also outpatient counseling. The patient at the time of discharge medically stable, not expressing any suicidal or homicidal thoughts. JAYJAY LOPEZ MD DR: NERY/anahi JOB#: [id number] / [id number]
[2018-10-08] MEDS ORDERED: lamoTRIgine 25 MG TABLET. PO SCH (21:00)
== END 2018-10-08 11:38 | disposition home or self-care (01) | DRG 885 ==
LOC: ER 16:32 → GEROPSY 22:00
PROVIDERS: ADMIT Psychiatry & Neurology Psychiatry; ATTEND Psychiatry & Neurology Psychiatry
DX: F25.0 Schizoaffective disorder, bipolar type (principal); N39.0 Urinary tract infection, site not specified; F02.81 Dementia in other diseases classified elsewhere, unspecified severity, with behavioral disturbance; F01.51 Vascular dementia, unspecified severity, with behavioral disturbance; G30.9 Alzheimer's disease, unspecified; F09 Unspecified mental disorder due to known physiological condition; F30.8 Other manic episodes; F41.9 Anxiety disorder, unspecified; F11.10 Opioid abuse, uncomplicated; F63.9 Impulse disorder, unspecified; G47.00 Insomnia, unspecified; H40.9 Unspecified glaucoma; G89.29 Other chronic pain; M54.5 Low back pain; Z82.49 Family history of ischemic heart disease and other diseases of the circulatory system; Z79.899 Other long term (current) drug therapy; Z80.3 Family history of malignant neoplasm of breast; Z90.49 Acquired absence of other specified parts of digestive tract; Z88.8 Allergy status to other drugs, medicaments and biological substances
CPT/HCPCS: 36415; 70450; 80048; 80053; 80061; 80076; 80307; 81001; 82140; 82306; 82607; 83036; 83540; 83550; 83605; 83690; 83735; 84436; 84443; 84480; 85025; 85610; 86592; 87086; 93005; G0480; G6039; 82003; 97116; 97530